=== PATIENT | male | born 1960 | race Caucasian/White ===

== ENCOUNTER 2016-10-17 07:46 | Inpatient (IN) | payer MEDICAID ==
[~2016-10-17] VITALS: Ht 162.6 cm; Wt 74.5 kg
[~2016-10-17 07:46] MED LIST: AMIO200T2 PO; APIX5TAB PO; CEPASTAT MT; D-ME473S2 PO; DILT180C75 PO; GUAI600T14 PO; LISI-313 PO; METO-429 PO; PANT40TA4 PO
[2016-10-17] MEDS ORDERED: DILTIAZEM-D5W 125MG/125ML DRIP 125 ML IV SCH (08:30)
[2016-10-17] MEDS ORDERED: DILTIAZEM 25 MG INJ IV ONE ×3 (08:30→09:00)
--- NOTE | 2016-10-17 08:41 | RADRPT ---
PROCEDURE: XR Chest. CLINICAL INDICATION: Chest pain. TECHNIQUE: Single frontal view of the chest was obtained. COMPARISON: 09/06/2016. FINDINGS: There is borderline cardiomegaly. Pulmonary vasculature appears mildly prominent. There is slight prominence of interstitial markings with a few Kellee B lines. No confluent airspace process is see n. Costophrenic angles are well defined. The visualized osseous structures appear intact. IMPRESSION: 1. Cardiomegaly with mild prominence of the upper lobe vasculature with slight interstitial prominen ce likely reflecting congestion and early edema. 2. No confluent airspace process identified. RPTAT: [facility] Physician Steff Date Time Electronically viewed and signed by Physician Steff on 10/17/2016 08:41 /
[2016-10-17 09:03] LABS: POTASSIUM 4.5 mmol/L (3.5-5.1)
[2016-10-17 09:05] LABS: CREATININE 1.33 mg/dl (0.61-1.24)
[2016-10-17 09:09] LABS: BASOPHIL # 0.1 10^3/ul (0.0-0.1); BASOPHILS % 0.4 % (0.0-2.0); EOSINOPHILS % 0.2 % (0.0-7.0); HEMATOCRIT 41.5 % (42.0-52.0); HEMOGLOBIN 13.9 g/dl (14.0-18.0); LYMPHOCYTES # 1.2 10^3/ul (0.8-2.9); LYMPHOCYTES % 10.2 % (15.0-51.0); MEAN CORPUSCULAR HEMOGLOBIN 32.2 pg (29.0-33.0); MEAN CORPUSCULAR HGB CONC 33.5 g/dl (32.0-37.0); MEAN PLATELET VOLUME 8.9 fl (7.4-10.4); MONOCYTE # 0.4 10^3/ul (0.3-0.9); MONOCYTES % 3.2 % (0.0-11.0); NEUTROPHIL # 9.9 10^3/ul (1.6-7.5); PLATELET COUNT 244 10^3/UL (140-440); RED BLOOD COUNT 4.32 10^6/ul (4.70-6.10); RED CELL DISTRIBUTION WIDTH 14.8 % (11.5-14.5); UNCORRECTED WBC 11.6 10^3/ul (4.8-10.8); WHITE BLOOD COUNT 11.6 10^3/ul (4.8-10.8)
[2016-10-17 09:10] LABS: INR 1.16; PROTIME 14.9 Sec (12.2-14.2); PT RATIO 1.2
[2016-10-17 09:11] LABS: PARTIAL THROMBOPLASTIN TIME 26.8 Sec (25.0-35.0)
[2016-10-17 09:16] LABS: CONDITION 1; LH ANALYZER COMMENTS 1
[2016-10-17 09:17] LABS: TROPONIN-I 0.016 ng/ml (0.00-0.12)
--- NOTE | 2016-10-17 09:57 | ERA ---
ER Documentation Chief Complaint Date/Time DATE: 10/17/16 TIME: 09:54 Chief Complaint SOB FOR THE PAST FEW DAYS HX OF CHF . RECENT RELEASE FROM HOSPITAL FOR SAME HPI This is a 55-year-old male who presents to the emergency room for evaluation of shortness of breath, palpitations. This patient does have a history of atrial fibrillation, he states that he recently ran out of his medications and is experiencing some mild shortness of breath. He denies any active chest pain but does state that he is feeling weak and came to the ER today for evaluation ROS All systems reviewed and are negative except as per history of present illness. Medications Home Meds Active Scripts Throat Lozenges* (Cepastat*) 9 Elmer Lozenge, 1 [place] Q1H Y for COUGH for 7 Days, LOZENGE Prov:DONG ADORNO 09/11/16 Apixaban* (Eliquis*) 5 Mg Tablet, 5 MG PO BID for 30 Days, TAB Prov:DONG ADORNO 09/11/16 Pantoprazole* (Pantoprazole*) 40 Mg Tablet.dr, 40 MG PO DAILY@06 for 30 Days Prov:DONG ADORNO 09/11/16 Metoprolol Tartrate* (Lopressor*) 50 Mg Tab, 50 MG PO BID for 30 Days, TAB Prov:DONG ADORNO 09/11/16 Lisinopril* (Lisinopril*) 5 Mg Tablet, 2.5 MG PO DAILY for 30 Days, TAB Prov:DONG ADORNO 09/11/16 Guaifenesin (Guaifenesin) 600 Mg Tablet.sa, 600 MG PO BID for 7 Days Prov:DOGN ADORNO 09/11/16 Diltiazem Hcl* (Cardizem CD*) 180 Mg Cap.sr.24h, 180 MG PO DAILY for 30 Days Prov:DONG ADORNO 09/11/16 Dextromethorphan Hb-Promethazine Hcl* (Promethazine DM* Syrup) 473 Ml Syrup, 10 ML PO Q6H Y for COUGH for 5 Days Prov:DONG ADORNO 09/11/16 Amiodarone Hcl* (Amiodarone Hcl*) 200 Mg Tablet, 200 MG PO DAILY for 30 Days, TAB Prov:DONG ADORNO 09/11/16 Allergies Allergies: Coded Allergies: No Known Allergies (Verified Allergy, Unknown, 09/02/16) PMhx/Soc History of Surgery: Yes (APPENDECTOMY) Anesthesia Reaction: No Hx Neurological Disorder: No Hx Respiratory Disorders: No Hx Cardiac Disorders: Yes (RHEUMATIC FEVER, AFIB, CHF) Hx Psychiatric Problems: No Hx Miscellaneous Medical Probl: No Hx Alcohol Use: No Hx Substance Use: No Hx Tobacco Use: No Smoking Status: Never smoker Physical Exam Vitals Vital Signs Date Time Temp Pulse Resp B/P Pulse Ox O2 Delivery O2 Flow Rate FiO2 10/17/16 08:53 105 18 118/85 99 Nasal Cannula 10/17/16 08:41 100 20 126/87 99 Nasal Cannula 10/17/16 08:05 Nasal Cannula 3 10/17/16 07:49 98.3 73 24 96 Physical Exam INITIAL VITAL SIGNS: Reviewed by me GENERAL: The patient is well developed and appropriate for usual state of health in no apparent distress HEENT: Pupils equal, round, and reactive to light. EOMI. There is no scleral icterus. NECK: C-spine is soft and supple, there is no meningismus. There is no cervical lymphadenopathy. LUNGS: Clear to auscultation bilaterally. There are no rales, wheezes or rhonchi. HEART: Irregularly irregular rhythm ABDOMEN: Soft, non-tender, non-distended. There are bowel sounds in all four quadrants. No rebound or guarding. EXTREMITIES: There is no peripheral cyanosis or edema. No focal swelling or erythema. NEUROLOGICAL: The patient moves all four extremities with 5/5 strength. Cranial nerves II - XII are intact. Normal gait. Alert and oriented SKIN: There is no apparent rash or petechiae. HEME/LYMPHATIC: There is no evidence of excessive bruising or lymphedema. PSYCHIATRIC: The patient does not appear anxious or depressed. Result Diagram: 10/17/1682310/17/16823 Results 24 hrs Laboratory Tests Test 10/17/16 08:24 Activated Partial Thromboplast Time 26.8Sec Anion Gap 20 Basophils # 0.110^3/ul Basophils % 0.4% Blood Morphology Comment Blood Urea Nitrogen 31mg/dl Calcium Level 9.0mg/dl Carbon Dioxide Level 21mmol/L Chloride Level 102mmol/L Creatinine 1.33mg/dl Eosinophils # 0.010^3/ul Eosinophils % 0.2% Glucose Level 137mg/dl Hematocrit 41.5% Hemoglobin 13.9g/dl INR International Normalized Ratio 1.16 Lymphocytes # 1.210^3/ul Lymphocytes % 10.2% Magnesium Level 2.0mg/dl Mean Corpuscular Hemoglobin 32.2pg Mean Corpuscular Hemoglobin Concent 33.5g/dl Mean Corpuscular Volume 96.0fl Mean Platelet Volume 8.9fl Monocytes # 0.410^3/ul Monocytes % 3.2% Neutrophils # 9.910^3/ul Neutrophils % 86.0% Nucleated Red Blood Cells # 0.010^3/ul Nucleated Red Blood Cells % 0.0/100WBC Platelet Count 17978^3/UL Potassium Level 4.5mmol/L Prothrombin Time 14.9Sec Prothrombin Time Ratio 1.2 Red Blood Count 4.3210^6/ul Red Cell Distribution Width 14.8% Sodium Level 138mmol/L Troponin I 0.016ng/ml White Blood Count 11.610^3/ul Current Medications Medications (Trade) Dose Ordered Sig/Rm Route PRN Reason Start Time Stop Time Status Last Admin Dose Admin Diltiazem HCl (Cardizem Iv) 10 mg ONCE ONCE IV 10/17/16 08:30 10/17/16 08:31 DC 10/17/16 08:42 Diltiazem HCl 10 mg 10 mg ONCE ONCE IV 10/17/16 08:30 10/17/16 08:31 DC 10/17/16 08:41 Diltiazem HCl (Cardizem-D5W 125 Mg/125 ml Drip) 125 ml @ 5 mls/hr TITRATE IV 10/17/16 08:30 10/17/16 08:42 Diltiazem HCl (Cardizem Iv) 15 mg ONCE ONCE IV 10/17/16 09:00 10/17/16 09:01 DC 10/17/16 08:47 Procedures/MDM EKG: Rate/Rhythm: Atrial fibrillation with rapid ventricular response QRS, ST, T-waves: [No changes consistent w/ acute ischemia] Impression: A. fib with RVR Chest X-ray 1V Interpreted by me: Soft Tissue: Cardiomegaly with mild prominence of the upper lobe vasculature with slight interstitial prominence likely reflecting congestion and early edema. Bones: No acute abnormalities Mediastinum/Cardiac Silhouette/Lungs: [No acute abnormalities] This is a 55-year-old male who presents to the ER for evaluation of shortness of breath and palpitations. When I evaluated him his heart rate was irregular in fast. EKG does confirm A. fib with RVR. The patient was given 30 mg total of Cardizem with only minor improvement in his heart rate. He was then placed on a Cardizem drip and his heart rate is now 120 bpm, his blood pressure is 129/ 67. He states he is feeling better at this time. Chest x-ray does show mild pulmonary edema. He has ran out of his medications. I have contacted his previous admitting physician, Dr. Noel who agrees this patient can be admitted to the hospital and placed in ICU at this time. Cardiac Critical Care: Excluding all billable procedures Time: 38 minutes Treatments/Evaluations: Close monitoring for dangerous arrhythmia and cardiovascular collapse, while treating with advance cardiac medications and techniques. Departure Diagnosis: Primary Impression: Atrial fibrillation with RVR Additional Impressions: Normocytic anemia Renal insufficiency Pulmonary vascular congestion Condition: Serious JAVID HEARN DO Oct 17, 2016 09:57
--- NOTE | 2016-10-17 14:20 | HP ---
DATE OF ADMISSION: 10/17/2016 CHIEF COMPLAINT: Shortness of breath for the past few days. HISTORY OF PRESENT ILLNESS: The patient is a 55-year-old gentleman known to me from previous admiss ion. The patient with a history of cardiomyopathy, mitral valve regurgitation, atrial fibrillation and tricuspid regurgitation. The patient has a history of admission for atrial fibrillation with ra pid ventricular response and refused cardioversion per last admission and was discharged home on dc dical management for atrial fibrillation. The patient told me that he ran out of his medication 5 d ays ago and was supposed to see his primary care physician in the office tomorrow. However, the pat ient developed shortness of breath and palpitations and presented to the emergency room[facility] was found to have atrial fibrillation with rapid ventricular response. The pat ient was started on Cardizem drip and will be admitted for further evaluation and management to the intensive care unit. The patient denied any fever or chills. Denied nausea, vomiting. PAST MEDICAL HISTORY: Per HPI, positive for atrial fibrillation and congestive heart failure. PAST SURGICAL HISTORY: The patient is status post cardioversion 4 years ago. Status post appendect marquis many years ago. FAMILY HISTORY: Noncontributory. SOCIAL HISTORY: The patient is employed as a painter hand. The patient is a smoker for many years. The patient denied any alcohol use, denies any illicit drug use. ALLERGIES: NO KNOWN ALLERGIES. MEDICATIONS ON ADMISSION: 1. Cepastat lozenges. 2. Eliquis 5 mg p.o. b.i.d. 3. Protonix. 4. Metoprolol 50 mg p.o. b.i.d. 5. Lisinopril 2.5 mg p.o. daily. 6. Cardizem CD 180 mg p.o. daily. 7. Promethazine. 8. Amiodarone 200 mg p.o. daily. REVIEW OF SYSTEMS: A 12-point review of systems is negative unless what mentioned in the HPI. PHYSICAL EXAMINATION: GENERAL: Well-developed, well-nourished male, currently is awake, alert. VITAL SIGNS: Temperature is 98.3, pulse is 98, blood pressure is 119/85, respiratory rate 18, oxyge n saturation is 99% on 3 liters nasal cannula. HEENT: Head is atraumatic, normocephalic. PERRLA. NECK: Supple, no mass, no thyromegaly. JVD is present. LUNGS: Clear bilaterally. CARDIOVASCULAR: Irregularly irregular rhythm. S2, variable S1, systolic murmur. ABDOMEN: Round, soft, nondistended, nontender. Bowel sounds present. There is no guarding, no ten derness. EXTREMITIES: No edema, clubbing, cyanosis. Pulses equal bilaterally 2+. SKIN: No rash, petechiae noted. NEUROLOGIC: The patient is awake, alert and oriented x4. No focal deficits noted. Motor strength is 5/5 in all extremities. LABORATORY DATA: On admission, CBC: White blood cells 11.6, hemoglobin 13.9, hematocrit 41.5, plat elets 244. Chemistry: Sodium 138, potassium 4.5, chloride 102, carbon dioxide 21, anion gap 20, BU N is 31, creatinine 1.33, glucose 137, calcium 9.2. Magnesium 2.1. Troponin is 0.016. INR is 1.16 , APTT is 26.8. IMAGING: Chest x-ray impression: 1. Cardiomegaly with mild prominence of upper lobe vasculature with slight interstitial prominence, likely reflection congestion and early edema. 2. No airspace process identified. ASSESSMENT: 1. Atrial fibrillation with rapid ventricular response. 2. Cardiomyopathy. 3. Mitral valve regurgitation. 4. History of rheumatic heart disease. 5. Poor medical compliance. PLAN: Admit patient to intensive care unit. Continue Cardizem drip. We will ask Dr. Hoyt to see patient in cardiology consultation. Resume patient's home medications. The patient is currently w ith acute kidney injury with elevated creatinine of 1.33 and BUN is 31. Continue to monitor renal f unction. We will restart Eliquis and bridge Lovenox for atrial fibrillation. Further recommendatio ns based on clinical course. Plan of care discussed with Dr. Noel. Dictated By: BJORN GOYAL [employer] TRIMMER for NADER NOEL MD SR/NTS Conf#: [id number] DID#: [id number]
[2016-10-17] MEDS: AMIODARONE 200 MG TAB PO SCH (17:44)
[2016-10-17] MEDS: DILTIAZEM (CD) 180 MG CAP PO SCH (17:45)
[2016-10-17 18:26] VITALS: BP 124/75; PULSE 115; RESP 18
[2016-10-17 18:27] VITALS: PULSE 127
[2016-10-17 18:28] VITALS: Ht 162.6 cm; Wt 74.5 kg
[2016-10-17 18:48] VITALS: BP 122/85; RESP 18
[2016-10-17 19:47] LABS: CREATINE KINASE 58 IU/L (23-200)
[2016-10-17 19:57] LABS: CK-MB 1.12 ng/ml (0.0-2.4)
[2016-10-17 20:00] LABS: TROPONIN-I < 0.012 ng/ml (0.00-0.12)
[2016-10-17] MEDS: METOPROLOL 50 MG TAB PO SCH (20:09)
[2016-10-17] MEDS: APIXABAN 5 MG TABLET PO SCH (20:09)
[2016-10-17 20:14] VITALS: PULSE 110
[2016-10-17 23:29] LABS: CREATINE KINASE 63 IU/L (23-200)
[2016-10-17 23:37] VITALS: BP 99/77; RESP 18
[2016-10-17 23:40] LABS: CK-MB 1.11 ng/ml (0.0-2.4)
[2016-10-17 23:44] LABS: TROPONIN-I < 0.012 ng/ml (0.00-0.12)
[2016-10-18] VITALS (12 sets, daily range): BP systolic 94–116; BP diastolic 69–86; PULSE 78–101; RESP 16–18
[2016-10-18] MEDS: PANTOPRAZOLE (EC) 40 MG TAB PO SCH (06:02)
[2016-10-18] MEDS: ONDANSETRON 4 MG INJ IV PRN (06:02)
--- NOTE | 2016-10-18 08:33 | CONS ---
Date/Time of Note Date/Time of Note DATE: 10/18/16 TIME: 08:30 Assessment/Plan Assessment/Plan Additional Assessment/Plan 1. Atrial fibrillation with rapid ventricular response. 2. Cardiomyopathy with an EF 50% 3. Mitral valve regurgitation - mod-severe 4. History of rheumatic heart disease. -eliquis resumed -rate much better xcontrolled and nnow in the 90s -continue metoprolol/dig/cardizem Consultation Date/Type/Reason Admit Date/Time Oct 17, 2016 at 18:15 Hx of Present Illness The patient is a 55-year-old gentleman known to me from previous admission. The patient with a history of cardiomyopathy, mitral valve regurgitation, atrial fibrillation and tricuspid regurgitation. The patient has a history of admission for atrial fibrillation with rapid ventricular response and refused cardioversion per last admission and was discharged home on medical management for atrial fibrillation. The patient told me that he ran out of his medication 5 days ago and was supposed to see his primary care physician in the office tomorrow. However, the patient developed shortness of breath and palpitations and presented to the emergency room. In the emergency room, patient was found to have atrial fibrillation with rapid ventricular response. The patient was started on Cardizem drip and will be admitted for further evaluation and management to the intensive care unit. The patient denied any fever or chills. He does have nausea Past Surgical History Past Surgical Hx: no surgical history Social History Smoking Status: Former smoker Exam/Review of Systems Vital Signs Vitals Vital Signs Date Time Temp Pulse Resp B/P Pulse Ox O2 Delivery O2 Flow Rate FiO2 10/18/16 08:09 98.4 82 17 105/70 95 10/17/16 22:15 Nasal Cannula 2.0 Results Result Diagram: 10/17/1682310/17/16823 Results 24 hrs Laboratory Tests Test 10/17/16 19:10 10/17/16 23:00 Creatine Kinase 58 63 Creatine Kinase Index 1.9 1.8 Creatinine Kinase MB (Mass) 1.12 1.11 Troponin I < 0.012 < 0.012 Medications Medications Current Medications Amiodarone HCl (Cordarone) 200 mg DAILY PO Last administered on 10/17/16 17:44 ; Admin Dose 200 MG; Start 10/18/16 at 09:00 Apixaban (Eliquis) 5 mg BID PO Last administered on 10/17/16 20:09; Admin Dose 5 MG; Start 10/17/16 at 21:00 Diltiazem HCl (Cardizem Cd) 180 mg DAILY PO Last administered on 10/17/16 17: 45; Admin Dose 180 MG; Start 10/18/16 at 09:00 Lisinopril (Zestril) 2.5 mg DAILY PO ; Start 10/18/16 at 09:00 Metoprolol Tartrate (Lopressor) 50 mg BID PO Last administered on 10/17/16 20: 09; Admin Dose 50 MG; Start 10/17/16 at 21:00 Pantoprazole (Protonix Tab) 40 mg DAILY@06 PO Last administered on 10/18/16 06 :02; Admin Dose 40 MG; Start 10/18/16 at 06:00 Influenza Virus Vaccine (Fluzone) 0.5 ml ONCE ONCE IM* ; Start 10/20/16 at 09:00 ; Stop 10/20/16 at 09:01 Ondansetron HCl (Zofran Inj) 4 mg Q6H PRN IV NAUSEA AND/OR VOMITING Last administered on 10/18/16 06:02; Admin Dose 4 MG; Start 10/18/16 at 06:00 EDVIN PIERSON MD Oct 18, 2016 08:33
[2016-10-18] MEDS: AMIODARONE 200 MG TAB PO SCH (08:35)
[2016-10-18] MEDS: APIXABAN 5 MG TABLET PO SCH ×2 (08:35→20:41)
[2016-10-18] MEDS: METOPROLOL 50 MG TAB PO SCH ×2 (08:36→20:42)
[2016-10-18] MEDS: LISINOPRIL 5 MG TAB PO SCH (08:36)
[2016-10-18] MEDS: DILTIAZEM (CD) 180 MG CAP PO SCH (08:36)
[2016-10-18 10:32] LABS: CREATININE 1.4 mg/dl (0.61-1.24)
[2016-10-18 10:33] LABS: CALCIUM 8.8 mg/dl (8.4-10.2)
[2016-10-18 10:37] LABS: BASOPHILS % 0.2 % (0.0-2.0); EOSINOPHILS % 0.3 % (0.0-7.0); HEMATOCRIT 39.5 % (42.0-52.0); HEMOGLOBIN 13.3 g/dl (14.0-18.0); LYMPHOCYTES # 1.2 10^3/ul (0.8-2.9); LYMPHOCYTES % 9.4 % (15.0-51.0); MEAN CORPUSCULAR HEMOGLOBIN 32.6 pg (29.0-33.0); MEAN CORPUSCULAR HGB CONC 33.6 g/dl (32.0-37.0); MEAN CORPUSCULAR VOLUME 97.1 fl (82.0-101.0); MEAN PLATELET VOLUME 9.1 fl (7.4-10.4); MONOCYTE # 0.5 10^3/ul (0.3-0.9); MONOCYTES % 4.2 % (0.0-11.0); NEUTROPHIL # 10.6 10^3/ul (1.6-7.5); NEUTROPHILS % 85.9 % (39.0-77.0); PLATELET COUNT 247 10^3/UL (140-440); RED BLOOD COUNT 4.07 10^6/ul (4.70-6.10); RED CELL DISTRIBUTION WIDTH 14.6 % (11.5-14.5); UNCORRECTED WBC 12.3 10^3/ul (4.8-10.8); WHITE BLOOD COUNT 12.3 10^3/ul (4.8-10.8)
[2016-10-18 10:41] LABS: CONDITION 1; LH ANALYZER COMMENTS 1
--- NOTE | 2016-10-18 17:00 | PN ---
Date/Time of Note Date/Time of Note DATE: 10/18/16 TIME: 16:59 Assessment/Plan Lines/Catheters IV [facility] Type [facility]from [facility] Saline Lock Assessment/Plan Assessment/Plan 1. Atrial fibrillation with rapid ventricular response. - PER CARDIOLOGY 2. Cardiomyopathy. 3. Mitral valve regurgitation. 4. History of rheumatic heart disease. 5. Poor medical compliance. 6. Acute kidney injury -with elevated BUN/ cREATININE 36/ 1.40 - Will do D5 1/2 NS at 40 cc x500 cc. - BMP AM - Continue to monitor renal function. Continue to monitor renal function. We will restart Eliquis and bridge Lovenox for atrial fibrillation. Further recommendations based on clinical course. Subjective 24 Hr Interval Summary Constitutional: no complaints Eyes: no complaints ENT: no complaints Respiratory: no complaints Gastrointestinal: nausea Genitourinary: no complaints Musculoskeletal: no complaints Skin: no complaints Neurologic: no complaints Endocrine: no complaints Lymphatic: no complaints Psychological: no complaints Immunologic: no complaints Exam/Review of Systems Vital Signs Vitals Vital Signs Date Time Temp Pulse Resp B/P Pulse Ox O2 Delivery O2 Flow Rate FiO2 10/18/16 16:38 94 10/18/16 15:56 98.0 17 115/70 95 10/17/16 22:15 Nasal Cannula 2.0 Exam Constitutional: alert, oriented, well developed Psych: nl mood/affect Head: atraumatic Eyes: EOMI, PERRL, nl sclera ENMT: nl external ears & nose Neck: non-tender Respiratory: clear to auscultation Cardiovascular: nl pulses Gastrointestinal: non-tender, soft Musculoskeletal: nl extremities to inspection Extremities: normal pulses Neurological: nl mental status, nl speech Skin: nl turgor Results Result Diagram: 10/18/1620 10/18/16 0920 Results 24 hrs Laboratory Tests Test 10/17/16 19:10 10/17/16 23:00 10/18/16 09:20 Creatine Kinase 58 63 Creatine Kinase Index 1.9 1.8 Creatinine Kinase MB (Mass) 1.12 1.11 Troponin I < 0.012 < 0.012 Anion Gap 18 H Basophils # 0.0 Basophils % 0.2 Blood Morphology Comment Blood Urea Nitrogen 36 H Calcium Level 8.8 Carbon Dioxide Level 22 Chloride Level 102 Creatinine 1.40 H Eosinophils # 0.0 Eosinophils % 0.3 Glucose Level 144 Hematocrit 39.5 L Hemoglobin 13.3 L Lymphocytes # 1.2 Lymphocytes % 9.4 L Mean Corpuscular Hemoglobin 32.6 Mean Corpuscular Hemoglobin Concent 33.6 Mean Corpuscular Volume 97.1 Mean Platelet Volume 9.1 Monocytes # 0.5 Monocytes % 4.2 Neutrophils # 10.6 H Neutrophils % 85.9 H Nucleated Red Blood Cells # 0.0 Nucleated Red Blood Cells % 0.0 Platelet Count 247 Potassium Level 5.0 Red Blood Count 4.07 L Red Cell Distribution Width 14.6 H Sodium Level 137 White Blood Count 12.3 H Medications Medications Current Medications Amiodarone HCl (Cordarone) 200 mg DAILY PO Last administered on 10/18/16 08:35 ; Admin Dose 200 MG; Start 10/18/16 at 09:00 Apixaban (Eliquis) 5 mg BID PO Last administered on 10/18/16 08:35; Admin Dose 5 MG; Start 10/17/16 at 21:00 Diltiazem HCl (Cardizem Cd) 180 mg DAILY PO Last administered on 10/17/16 17: 45; Admin Dose 180 MG; Start 10/18/16 at 09:00 Lisinopril (Zestril) 2.5 mg DAILY PO Last administered on 10/18/16 08:36; Admin Dose 2.5 MG; Start 10/18/16 at 09:00 Metoprolol Tartrate (Lopressor) 50 mg BID PO Last administered on 10/17/16 20: 09; Admin Dose 50 MG; Start 10/17/16 at 21:00 Pantoprazole (Protonix Tab) 40 mg DAILY@06 PO Last administered on 10/18/16 06 :02; Admin Dose 40 MG; Start 10/18/16 at 06:00 Influenza Virus Vaccine (Fluzone) 0.5 ml ONCE ONCE IM* ; Start 10/20/16 at 09:00 ; Stop 10/20/16 at 09:01 Ondansetron HCl (Zofran Inj) 4 mg Q6H PRN IV NAUSEA AND/OR VOMITING Last administered on 10/18/16 06:02; Admin Dose 4 MG; Start 10/18/16 at 06:00 DONG ADORNO Oct 18, 2016 17:00
[2016-10-18] MEDS ORDERED: DEXTROSE 5%-0.45% NACL 1,000 ML IV SCH (17:30)
[2016-10-19] VITALS (12 sets, daily range): BP systolic 97–129; BP diastolic 65–73; PULSE 90–170; RESP 16–18
[2016-10-19] MEDS: PANTOPRAZOLE (EC) 40 MG TAB PO SCH (05:45)
[2016-10-19 07:03] LABS: BASOPHILS % 0.1 % (0.0-2.0); EOSINOPHILS # 0.2 10^3/ul (0.0-0.5); EOSINOPHILS % 2.2 % (0.0-7.0); HEMATOCRIT 37.2 % (42.0-52.0); HEMOGLOBIN 12.8 g/dl (14.0-18.0); LYMPHOCYTES # 1.9 10^3/ul (0.8-2.9); LYMPHOCYTES % 18.5 % (15.0-51.0); MEAN CORPUSCULAR HEMOGLOBIN 33.1 pg (29.0-33.0); MEAN CORPUSCULAR HGB CONC 34.3 g/dl (32.0-37.0); MEAN CORPUSCULAR VOLUME 96.5 fl (82.0-101.0); MONOCYTE # 0.6 10^3/ul (0.3-0.9); MONOCYTES % 6.2 % (0.0-11.0); NEUTROPHIL # 7.6 10^3/ul (1.6-7.5); PLATELET COUNT 208 10^3/UL (140-440); POTASSIUM 4.4 mmol/L (3.5-5.1); RED BLOOD COUNT 3.86 10^6/ul (4.70-6.10); RED CELL DISTRIBUTION WIDTH 14.6 % (11.5-14.5); UNCORRECTED WBC 10.4 10^3/ul (4.8-10.8); WHITE BLOOD COUNT 10.4 10^3/ul (4.8-10.8)
[2016-10-19 07:05] LABS: CREATININE 1.3 mg/dl (0.61-1.24)
[2016-10-19 07:06] LABS: CALCIUM 8.4 mg/dl (8.4-10.2)
[2016-10-19 07:22] LABS: CONDITION 1; LH ANALYZER COMMENTS 1
[2016-10-19] MEDS: METOPROLOL 50 MG TAB PO SCH (07:23)
[2016-10-19] MEDS: DILTIAZEM (CD) 180 MG CAP PO SCH (08:08)
[2016-10-19] MEDS: LISINOPRIL 5 MG TAB PO SCH (08:08)
[2016-10-19] MEDS: APIXABAN 5 MG TABLET PO SCH ×2 (08:09→21:54)
[2016-10-19] MEDS: AMIODARONE 200 MG TAB PO SCH (08:09)
--- NOTE | 2016-10-19 13:33 | PN ---
Date/Time of Note Date/Time of Note DATE: 10/19/16 TIME: 13:29 Assessment/Plan VTE Prophylaxis VTE Prophylaxis Intervention: SCD's Lines/Catheters [facility] Saline Lock Urinary Cath still in place: No Assessment/Plan Chief Complaint/Hosp Course ASSESSMENT: 1. Atrial fibrillation with rapid ventricular response. is following in cardiology consultation. Continue Eliquis. 2. Cardiomyopathy. 3. Mitral valve regurgitation. 4. History of rheumatic heart disease. 5. Poor medical compliance. Further recommendations based on clinical course. Plan of care discussed with Dr. Noel. Problems: Subjective 24 Hr Interval Summary Free Text/Dictation Patient is awake, alert, denies pain. A-fib with elevated HR 120 on tele. Exam/Review of Systems Vital Signs Vitals Vital Signs Date Time Temp Pulse Resp B/P Pulse Ox O2 Delivery O2 Flow Rate FiO2 10/19/16 12:45 98.0 87 18 113/65 99 10/17/16 22:15 Nasal Cannula 2.0 Intake and Output 10/18/16 10/18/16 10/19/16 15:00 23:00 07:00 Intake Total 840 ml 450 ml Balance 840 ml 450 ml Exam GENERAL: Well-developed, well-nourished male, currently is awake, alert. HEENT: Head is atraumatic, normocephalic. PERRLA. NECK: Supple, no mass, no thyromegaly. JVD is present. LUNGS: Clear bilaterally. CARDIOVASCULAR: Irregularly irregular rhythm. S2, variable S1, systolic murmur. ABDOMEN: Round, soft, nondistended, nontender. Bowel sounds present. There is no guarding, no tenderness. EXTREMITIES: No edema, clubbing, cyanosis. Pulses equal bilaterally 2+. SKIN: No rash, petechiae noted. NEUROLOGIC: The patient is awake, alert and oriented x4. Results Result Diagram: 10/19/16 0545 10/19/16 0545 Results 24 hrs Laboratory Tests Test 10/19/16 05:45 Anion Gap 13 Basophils # 0.0 Basophils % 0.1 Blood Morphology Comment Blood Urea Nitrogen 29 H Calcium Level 8.4 Carbon Dioxide Level 24 Chloride Level 104 Creatinine 1.30 H Eosinophils # 0.2 Eosinophils % 2.2 Glucose Level 86 # Hematocrit 37.2 L Hemoglobin 12.8 L Lymphocytes # 1.9 Lymphocytes % 18.5 Mean Corpuscular Hemoglobin 33.1 H Mean Corpuscular Hemoglobin Concent 34.3 Mean Corpuscular Volume 96.5 Mean Platelet Volume 9.0 Monocytes # 0.6 Monocytes % 6.2 Neutrophils # 7.6 H Neutrophils % 73.0 Nucleated Red Blood Cells # 0.0 Nucleated Red Blood Cells % 0.0 Platelet Count 208 Potassium Level 4.4 Red Blood Count 3.86 L Red Cell Distribution Width 14.6 H Sodium Level 137 White Blood Count 10.4 Medications Medications Current Medications Amiodarone HCl (Cordarone) 200 mg DAILY PO Last administered on 10/19/16 08:09 ; Admin Dose 200 MG; Start 10/18/16 at 09:00 Apixaban (Eliquis) 5 mg BID PO Last administered on 10/19/16 08:09; Admin Dose 5 MG; Start 10/17/16 at 21:00 Diltiazem HCl (Cardizem Cd) 180 mg DAILY PO Last administered on 10/19/16 08: 08; Admin Dose 180 MG; Start 10/18/16 at 09:00 Lisinopril (Zestril) 2.5 mg DAILY PO Last administered on 10/19/16 08:08; Admin Dose 2.5 MG; Start 10/18/16 at 09:00 Metoprolol Tartrate (Lopressor) 50 mg BID PO Last administered on 10/17/16 20: 09; Admin Dose 50 MG; Start 10/17/16 at 21:00 Pantoprazole (Protonix Tab) 40 mg DAILY@06 PO Last administered on 10/19/16 05 :45; Admin Dose 40 MG; Start 10/18/16 at 06:00 Influenza Virus Vaccine (Fluzone) 0.5 ml ONCE ONCE IM* ; Start 10/20/16 at 09:00 ; Stop 10/20/16 at 09:01 Ondansetron HCl (Zofran Inj) 4 mg Q6H PRN IV NAUSEA AND/OR VOMITING Last administered on 10/18/16 06:02; Admin Dose 4 MG; Start 10/18/16 at 06:00 BJORN GOYAL Oct 19, 2016 13:33
--- NOTE | 2016-10-19 16:14 | PN ---
Date/Time of Note Date/Time of Note DATE: 10/19/16 TIME: 16:13 Assessment/Plan VTE Prophylaxis VTE Prophylaxis Intervention: SCD's Lines/Catheters IV Catheter Type (from [facility]): Saline Lock Urinary Cath still in place: No Assessment/Plan Chief Complaint/Hosp Course The patient is a 55-year-old gentleman known to me from previous admission. The patient with a history of cardiomyopathy, mitral valve regurgitation, atrial fibrillation and tricuspid regurgitation. The patient has a history of admission for atrial fibrillation with rapid ventricular response and refused cardioversion per last admission and was discharged home on medical management for atrial fibrillation. The patient told me that he ran out of his medication 5 days ago and was supposed to see his primary care physician in the office tomorrow. However, the patient developed shortness of breath and palpitations and presented to the emergency room. In the emergency room, patient was found to have atrial fibrillation with rapid ventricular response. The patient was started on Cardizem drip and will be admitted for further evaluation and management to the intensive care unit. The patient denied any fever or chills. He does have nausea Problems: Assessment/Plan 1. Atrial fibrillation with rapid ventricular response. 2. Cardiomyopathy with an EF 50% 3. Mitral valve regurgitation - mod-severe 4. History of rheumatic heart disease. -eliquis resumed -rate much better xcontrolled and change metoporlol to atenolol due to side effects and will increse dose -continue dig/cardizem -d/c planning ok Subjective 24 Hr Interval Summary Free Text/Dictation The patient doing well Exam/Review of Systems Vital Signs Vitals Vital Signs Date Time Temp Pulse Resp B/P Pulse Ox O2 Delivery O2 Flow Rate FiO2 10/19/16 16:08 110 10/19/16 12:45 98.0 18 113/65 99 10/17/16 22:15 Nasal Cannula 2.0 Intake and Output 10/18/16 10/18/16 10/19/16 15:00 23:00 07:00 Intake Total 840 ml 450 ml Balance 840 ml 450 ml Results Result Diagram: 10/19/16 0545 10/19/16 0545 Results 24 hrs Laboratory Tests Test 10/19/16 05:45 Anion Gap 13 Basophils # 0.0 Basophils % 0.1 Blood Morphology Comment Blood Urea Nitrogen 29 H Calcium Level 8.4 Carbon Dioxide Level 24 Chloride Level 104 Creatinine 1.30 H Eosinophils # 0.2 Eosinophils % 2.2 Glucose Level 86 # Hematocrit 37.2 L Hemoglobin 12.8 L Lymphocytes # 1.9 Lymphocytes % 18.5 Mean Corpuscular Hemoglobin 33.1 H Mean Corpuscular Hemoglobin Concent 34.3 Mean Corpuscular Volume 96.5 Mean Platelet Volume 9.0 Monocytes # 0.6 Monocytes % 6.2 Neutrophils # 7.6 H Neutrophils % 73.0 Nucleated Red Blood Cells # 0.0 Nucleated Red Blood Cells % 0.0 Platelet Count 208 Potassium Level 4.4 Red Blood Count 3.86 L Red Cell Distribution Width 14.6 H Sodium Level 137 White Blood Count 10.4 Medications Medications Current Medications Amiodarone HCl (Cordarone) 200 mg DAILY PO Last administered on 10/19/16 08:09 ; Admin Dose 200 MG; Start 10/18/16 at 09:00 Apixaban (Eliquis) 5 mg BID PO Last administered on 10/19/16 08:09; Admin Dose 5 MG; Start 10/17/16 at 21:00 Diltiazem HCl (Cardizem Cd) 180 mg DAILY PO Last administered on 10/19/16 08: 08; Admin Dose 180 MG; Start 10/18/16 at 09:00 Lisinopril (Zestril) 2.5 mg DAILY PO Last administered on 10/19/16 08:08; Admin Dose 2.5 MG; Start 10/18/16 at 09:00 Metoprolol Tartrate (Lopressor) 50 mg BID PO Last administered on 10/17/16 20: 09; Admin Dose 50 MG; Start 10/17/16 at 21:00 Pantoprazole (Protonix Tab) 40 mg DAILY@06 PO Last administered on 10/19/16 05 :45; Admin Dose 40 MG; Start 10/18/16 at 06:00 Influenza Virus Vaccine (Fluzone) 0.5 ml ONCE ONCE IM* ; Start 10/20/16 at 09:00 ; Stop 10/20/16 at 09:01 Ondansetron HCl (Zofran Inj) 4 mg Q6H PRN IV NAUSEA AND/OR VOMITING Last administered on 10/18/16 06:02; Admin Dose 4 MG; Start 10/18/16 at 06:00 EDVIN PIERSON MD Oct 19, 2016 16:14
--- NOTE | 2016-10-19 16:41 | RADRPT ---
PROCEDURE: Retroperitoneal US. CLINICAL INDICATION: Renal insufficiency TECHNIQUE: Multiple sonographic images of the kidneys and retroperitoneum were obtained. The imag es were reviewed on a PACS workstation. COMPARISON: No prior studies are available for comparison. FINDINGS: The kidneys are normal in size, contour, cortical thickness and echogenicity. The right kidney measures 10.3 cm. The left kidney measures 10.0 cm. No kidney stones are visualized. There is no evidence for hydronephrosis. The urinary bladder is not visualized. RPTAT: AA IMPRESSION: Unremarkable retroperitoneal ultrasound. .Torsten Clarke MD, MD Date Time Electronically viewed and signed by .Torsten Clarke MD, on 10/19/2016 16:40 .S/
[2016-10-20] VITALS (12 sets, daily range): BP systolic 105–132; BP diastolic 57–78; PULSE 85–130; RESP 16–18
[2016-10-20] MEDS: PANTOPRAZOLE (EC) 40 MG TAB PO SCH (06:43)
[2016-10-20 07:09] LABS: BASOPHIL # 0.1 10^3/ul (0.0-0.1); BASOPHILS % 0.6 % (0.0-2.0); EOSINOPHILS # 0.3 10^3/ul (0.0-0.5); EOSINOPHILS % 2.9 % (0.0-7.0); HEMATOCRIT 35.5 % (42.0-52.0); HEMOGLOBIN 12.3 g/dl (14.0-18.0); LYMPHOCYTES # 1.6 10^3/ul (0.8-2.9); LYMPHOCYTES % 15.4 % (15.0-51.0); MEAN CORPUSCULAR HEMOGLOBIN 33.1 pg (29.0-33.0); MEAN CORPUSCULAR HGB CONC 34.8 g/dl (32.0-37.0); MEAN CORPUSCULAR VOLUME 95.4 fl (82.0-101.0); MONOCYTE # 0.7 10^3/ul (0.3-0.9); MONOCYTES % 6.6 % (0.0-11.0); NEUTROPHIL # 7.6 10^3/ul (1.6-7.5); NEUTROPHILS % 74.5 % (39.0-77.0); PLATELET COUNT 230 10^3/UL (140-440); RED BLOOD COUNT 3.72 10^6/ul (4.70-6.10); RED CELL DISTRIBUTION WIDTH 14.7 % (11.5-14.5); UNCORRECTED WBC 10.1 10^3/ul (4.8-10.8); WHITE BLOOD COUNT 10.1 10^3/ul (4.8-10.8)
[2016-10-20 07:14] LABS: POTASSIUM 4.3 mmol/L (3.5-5.1)
[2016-10-20 07:16] LABS: CREATININE 1.19 mg/dl (0.61-1.24)
[2016-10-20 07:17] LABS: CALCIUM 8.5 mg/dl (8.4-10.2)
[2016-10-20 07:21] LABS: CONDITION 1; LH ANALYZER COMMENTS 1
--- NOTE | 2016-10-20 08:28 | PN ---
Date/Time of Note Date/Time of Note DATE: 10/20/16 TIME: 08:27 Assessment/Plan VTE Prophylaxis VTE Prophylaxis Intervention: SCD's Lines/Catheters IV [facility] Type (from [facility]): Saline Lock Urinary Cath still in place: No Assessment/Plan Chief Complaint/Hosp Course The patient is a 55-year-old gentleman known to me from previous admission. The patient with a history of cardiomyopathy, mitral valve regurgitation, atrial fibrillation and tricuspid regurgitation. The patient has a history of admission for atrial fibrillation with rapid ventricular response and refused cardioversion per last admission and was discharged home on medical management for atrial fibrillation. The patient told me that he ran out of his medication 5 days ago and was supposed to see his primary care physician in the office tomorrow. However, the patient developed shortness of breath and palpitations and presented to the emergency room. In the emergency room, patient was found to have atrial fibrillation with rapid ventricular response. The patient was started on Cardizem drip and will be admitted for further evaluation and management to the intensive care unit. The patient denied any fever or chills. He does have nausea Problems: Assessment/Plan Assessment/Plan 1. Atrial fibrillation with rapid ventricular response. 2. Cardiomyopathy with an EF 50% 3. Mitral valve regurgitation - mod-severe 4. History of rheumatic heart disease. -increase av blockers -on eliquis -will continue amiodarone as may cardiovert in the future -possible cardiovversion in 8 weeks if still afib d/c planning ok Subjective 24 Hr Interval Summary Free Text/Dictation The patient stable with occaisonal elevated HR Exam/Review of Systems Vital Signs Vitals Vital Signs Date Time Temp Pulse Resp B/P Pulse Ox O2 Delivery O2 Flow Rate FiO2 10/20/16 07:41 98.3 71 18 108/57 98 10/17/16 22:15 Nasal Cannula 2.0 Intake and Output 10/19/16 10/19/16 10/20/16 15:00 23:00 07:00 Intake Total 800 ml 700 ml Balance 800 ml 700 ml Results Result Diagram: 10/20/16 0620 10/20/16 0620 Results 24 hrs Laboratory Tests Test 10/20/16 06:20 Anion Gap 15 Basophils # 0.1 Basophils % 0.6 Blood Morphology Comment Blood Urea Nitrogen 25 H Calcium Level 8.5 Carbon Dioxide Level 24 Chloride Level 102 Creatinine 1.19 Eosinophils # 0.3 Eosinophils % 2.9 Glucose Level 91 Hematocrit 35.5 L Hemoglobin 12.3 L Lymphocytes # 1.6 Lymphocytes % 15.4 Mean Corpuscular Hemoglobin 33.1 H Mean Corpuscular Hemoglobin Concent 34.8 Mean Corpuscular Volume 95.4 Mean Platelet Volume 9.0 Monocytes # 0.7 Monocytes % 6.6 Neutrophils # 7.6 H Neutrophils % 74.5 Nucleated Red Blood Cells # 0.0 Nucleated Red Blood Cells % 0.0 Platelet Count 230 Potassium Level 4.3 Red Blood Count 3.72 L Red Cell Distribution Width 14.7 H Sodium Level 137 White Blood Count 10.1 Medications Medications Current Medications Amiodarone HCl (Cordarone) 200 mg DAILY PO Last administered on 10/19/16 08:09 ; Admin Dose 200 MG; Start 10/18/16 at 09:00 Apixaban (Eliquis) 5 mg BID PO Last administered on 10/19/16 21:54; Admin Dose 5 MG; Start 10/17/16 at 21:00 Diltiazem HCl (Cardizem Cd) 180 mg DAILY PO Last administered on 10/19/16 08: 08; Admin Dose 180 MG; Start 10/18/16 at 09:00 Lisinopril (Zestril) 2.5 mg DAILY PO Last administered on 10/19/16 08:08; Admin Dose 2.5 MG; Start 10/18/16 at 09:00 Pantoprazole (Protonix Tab) 40 mg DAILY@06 PO Last administered on 10/20/16 06 :43; Admin Dose 40 MG; Start 10/18/16 at 06:00 Influenza Virus Vaccine (Fluzone) 0.5 ml ONCE ONCE IM* ; Start 10/20/16 at 09:00 ; Stop 10/20/16 at 09:01 Ondansetron HCl (Zofran Inj) 4 mg Q6H PRN IV NAUSEA AND/OR VOMITING Last administered on 10/18/16 06:02; Admin Dose 4 MG; Start 10/18/16 at 06:00 Atenolol (Tenormin) 100 mg DAILY PO ; Start 10/20/16 at 09:00 EDVIN PIERSON MD Oct 20, 2016 08:28
[2016-10-20] MEDS: LISINOPRIL 5 MG TAB PO SCH (08:46)
[2016-10-20] MEDS: ATENOLOL 100 MG TAB PO SCH (08:47)
[2016-10-20] MEDS: APIXABAN 5 MG TABLET PO SCH ×2 (08:47→20:51)
[2016-10-20] MEDS ORDERED: INFLUENZA VIRUS VACCINE 0.5 ML (DISPENSING) IM* ONE (09:00)
[2016-10-20] MEDS: DILTIAZEM (CD) 240 MG CAP PO SCH (10:06)
--- NOTE | 2016-10-20 13:29 | PN ---
Date/Time of Note Date/Time of Note DATE: 10/20/16 TIME: 13:27 Assessment/Plan VTE Prophylaxis VTE Prophylaxis Intervention: LMWH Lines/Catheters IV C[facility] Saline Lock Urinary Cath still in place: No Assessment/Plan Assessment/Plan 1. Atrial fibrillation with rapid ventricular response. - PER CARDIOLOGY 2. Cardiomyopathy. 3. Mitral valve regurgitation. 4. History of rheumatic heart disease. 5. Poor medical compliance. 6. Acute kidney injury resolving - BMP AM - Continue to monitor renal function. Continue to monitor renal function. We will restart Eliquis and bridge Lovenox for atrial fibrillation. Further recommendations based on clinical course. Exam/Review of Systems Vital Signs Vitals Vital Signs Date Time Temp Pulse Resp B/P Pulse Ox O2 Delivery O2 Flow Rate FiO2 10/20/16 12:00 97.7 51 18 105/78 98 10/17/16 22:15 Nasal Cannula 2.0 Intake and Output 10/19/16 10/19/16 10/20/16 15:00 23:00 07:00 Intake Total 800 ml 700 ml Balance 800 ml 700 ml Exam Constitutional: alert, oriented, well developed Psych: nl mood/affect Eyes: EOMI, PERRL, nl sclera ENMT: nl external ears & nose Neck: non-tender Respiratory: clear to auscultation Cardiovascular: nl pulses Gastrointestinal: non-tender, soft Musculoskeletal: nl extremities to inspection Extremities: normal pulses Neurological: nl mental status, nl speech Skin: nl turgor Lymph: nontender Results Result Diagram: 10/20/16 0620 10/20/16 0620 Results 24 hrs Laboratory Tests Test 10/20/16 06:20 Anion Gap 15 Basophils # 0.1 Basophils % 0.6 Blood Morphology Comment Blood Urea Nitrogen 25 H Calcium Level 8.5 Carbon Dioxide Level 24 Chloride Level 102 Creatinine 1.19 Eosinophils # 0.3 Eosinophils % 2.9 Glucose Level 91 Hematocrit 35.5 L Hemoglobin 12.3 L Lymphocytes # 1.6 Lymphocytes % 15.4 Mean Corpuscular Hemoglobin 33.1 H Mean Corpuscular Hemoglobin Concent 34.8 Mean Corpuscular Volume 95.4 Mean Platelet Volume 9.0 Monocytes # 0.7 Monocytes % 6.6 Neutrophils # 7.6 H Neutrophils % 74.5 Nucleated Red Blood Cells # 0.0 Nucleated Red Blood Cells % 0.0 Platelet Count 230 Potassium Level 4.3 Red Blood Count 3.72 L Red Cell Distribution Width 14.7 H Sodium Level 137 White Blood Count 10.1 Medications Medications Current Medications Apixaban (Eliquis) 5 mg BID PO Last administered on 10/20/16 08:47; Admin Dose 5 MG; Start 10/17/16 at 21:00 Lisinopril (Zestril) 2.5 mg DAILY PO Last administered on 10/20/16 08:46; Admin Dose 2.5 MG; Start 10/18/16 at 09:00 Pantoprazole (Protonix Tab) 40 mg DAILY@06 PO Last administered on 10/20/16 06 :43; Admin Dose 40 MG; Start 10/18/16 at 06:00 Ondansetron HCl (Zofran Inj) 4 mg Q6H PRN IV NAUSEA AND/OR VOMITING Last administered on 10/18/16 06:02; Admin Dose 4 MG; Start 10/18/16 at 06:00 Atenolol (Tenormin) 100 mg DAILY PO Last administered on 10/20/16 08:47; Admin Dose 100 MG; Start 10/20/16 at 09:00 Diltiazem HCl (Cardizem Cd) 240 mg DAILY PO Last administered on 10/20/16 10: 06; Admin Dose 240 MG; Start 10/20/16 at 09:00 DONG ADORNO Oct 20, 2016 13:29
[2016-10-21] VITALS (12 sets, daily range): BP systolic 99–110; BP diastolic 64–73; PULSE 60–93; RESP 15–73
[2016-10-21] MEDS: PANTOPRAZOLE (EC) 40 MG TAB PO SCH (05:47)
[2016-10-21 07:56] LABS: BASOPHIL # 0.1 10^3/ul (0.0-0.1); BASOPHILS % 0.6 % (0.0-2.0); EOSINOPHILS # 0.2 10^3/ul (0.0-0.5); EOSINOPHILS % 2.7 % (0.0-7.0); HEMATOCRIT 37.3 % (42.0-52.0); HEMOGLOBIN 13.1 g/dl (14.0-18.0); LYMPHOCYTES # 1.6 10^3/ul (0.8-2.9); LYMPHOCYTES % 17.5 % (15.0-51.0); MEAN CORPUSCULAR HEMOGLOBIN 33.1 pg (29.0-33.0); MEAN CORPUSCULAR VOLUME 94.5 fl (82.0-101.0); MEAN PLATELET VOLUME 9.1 fl (7.4-10.4); MONOCYTE # 0.6 10^3/ul (0.3-0.9); MONOCYTES % 6.7 % (0.0-11.0); NEUTROPHIL # 6.5 10^3/ul (1.6-7.5); NEUTROPHILS % 72.5 % (39.0-77.0); PLATELET COUNT 253 10^3/UL (140-440); RED BLOOD COUNT 3.95 10^6/ul (4.70-6.10); RED CELL DISTRIBUTION WIDTH 14.9 % (11.5-14.5)
[2016-10-21 08:02] LABS: POTASSIUM 4.4 mmol/L (3.5-5.1)
[2016-10-21 08:04] LABS: CREATININE 1.2 mg/dl (0.61-1.24)
[2016-10-21 08:06] LABS: CALCIUM 8.6 mg/dl (8.4-10.2)
[2016-10-21 08:16] LABS: CONDITION 1; LH ANALYZER COMMENTS 1
--- NOTE | 2016-10-21 08:40 | CONS ---
Date/Time of Note Date/Time of Note DATE: 10/21/16 TIME: 08:38 Consultation Date/Type/Reason Admit Date/Time Oct 17, 2016 at 18:15 Initial Consult Date 24 HR Interval Summary Free Text/Dictation Assessment/Plan 1. Atrial fibrillation with rapid ventricular response. 2. Cardiomyopathy with an EF 50% 3. Mitral valve regurgitation - mod-severe 4. History of rheumatic heart disease. -increase av blockers -on eliquis -will continue amiodarone as may cardiovert in the future -possible cardioversion in 8 weeks if still afib d/c planning ok Constitutional: no complaints Exam/Review of Systems Vital Signs Vitals Vital Signs Date Time Temp Pulse Resp B/P Pulse Ox O2 Delivery O2 Flow Rate FiO2 10/21/16 07:15 97.7 53 16 106/66 97 10/20/16 20:15 Room Air 10/17/16 22:15 2.0 Intake and Output 10/20/16 10/20/16 10/21/16 15:00 23:00 07:00 Intake Total 1200 ml 600 ml Balance 1200 ml 600 ml Exam Constitutional: alert, oriented, well developed Psych: no complaints Respiratory: clear to auscultation, normal air movement Cardiovascular: S3, S4, bruits, diastolic murmur, gallop, irregular rhythm, jugular venous distention (JVD), murmurs/extra sounds, nl pulses, other, regular rate and rhythm, rub, systolic murmur, No edema Gastrointestinal: non-tender, soft Extremities: cyanosis, edema, normal pulses, other, palpable cord, pitting pedal edema, tenderness Results Result Diagram: 10/21/16 0635 10/21/16 0635 Results 24 hrs Laboratory Tests Test 10/21/16 06:35 Anion Gap 15 Basophils # 0.1 Basophils % 0.6 Blood Morphology Comment Blood Urea Nitrogen 24 H Calcium Level 8.6 Carbon Dioxide Level 24 Chloride Level 103 Creatinine 1.20 Eosinophils # 0.2 Eosinophils % 2.7 Glucose Level 101 Hematocrit 37.3 L Hemoglobin 13.1 L Lymphocytes # 1.6 Lymphocytes % 17.5 Mean Corpuscular Hemoglobin 33.1 H Mean Corpuscular Hemoglobin Concent 35.0 Mean Corpuscular Volume 94.5 Mean Platelet Volume 9.1 Monocytes # 0.6 Monocytes % 6.7 Neutrophils # 6.5 Neutrophils % 72.5 Nucleated Red Blood Cells # 0.0 Nucleated Red Blood Cells % 0.0 Platelet Count 253 Potassium Level 4.4 Red Blood Count 3.95 L Red Cell Distribution Width 14.9 H Sodium Level 138 White Blood Count 9.0 Medications Medications Current Medications Apixaban (Eliquis) 5 mg BID PO Last administered on 10/20/16 20:51; Admin Dose 5 MG; Start 10/17/16 at 21:00 Lisinopril (Zestril) 2.5 mg DAILY PO Last administered on 10/20/16 08:46; Admin Dose 2.5 MG; Start 10/18/16 at 09:00 Pantoprazole (Protonix Tab) 40 mg DAILY@06 PO Last administered on 10/21/16 05 :47; Admin Dose 40 MG; Start 10/18/16 at 06:00 Ondansetron HCl (Zofran Inj) 4 mg Q6H PRN IV NAUSEA AND/OR VOMITING Last administered on 10/18/16 06:02; Admin Dose 4 MG; Start 10/18/16 at 06:00 Atenolol (Tenormin) 100 mg DAILY PO Last administered on 10/20/16 08:47; Admin Dose 100 MG; Start 10/20/16 at 09:00 Diltiazem HCl (Cardizem Cd) 240 mg DAILY PO Last administered on 10/20/16 10: 06; Admin Dose 240 MG; Start 10/20/16 at 09:00 AMA COUCH MD Oct 21, 2016 08:40
[2016-10-21] MEDS: DILTIAZEM (CD) 240 MG CAP PO SCH (09:00)
[2016-10-21] MEDS: APIXABAN 5 MG TABLET PO SCH ×2 (09:27→20:13)
[2016-10-21] MEDS: ATENOLOL 100 MG TAB PO SCH (09:27)
[2016-10-21] MEDS: LISINOPRIL 5 MG TAB PO SCH (09:28)
[2016-10-21] MEDS: DILTIAZEM (CD) 180 MG CAP PO SCH (10:41)
--- NOTE | 2016-10-21 11:27 | PN ---
Date/Time of Note Date/Time of Note DATE: 10/21/16 TIME: 11:26 Assessment/Plan VTE Prophylaxis VTE Prophylaxis Intervention: other Lines/Catheters IV [facility]ter Type (from [facility]): Peripheral IV Urinary Cath still in place: No Assessment/Plan Assessment/Plan 1. Atrial fibrillation with rapid ventricular response. - PER CARDIOLOGY 2. Cardiomyopathy. 3. Mitral valve regurgitation. 4. History of rheumatic heart disease. 5. Poor medical compliance. 6. Acute kidney injury resolving - BMP AM - Continue to monitor renal function. Continue to monitor renal function. We will restart Eliquis and bridge Lovenox for atrial fibrillation. Further recommendations based on clinical course. Subjective 24 Hr Interval Summary Constitutional: other Eyes: no complaints ENT: no complaints Respiratory: no complaints Cardiovascular: no complaints Gastrointestinal: nausea Genitourinary: no complaints Musculoskeletal: no complaints Skin: no complaints Neurologic: no complaints Endocrine: no complaints Psychological: no complaints Immunologic: no complaints Exam/Review of Systems Vital Signs Vitals Vital Signs Date Time Temp Pulse Resp B/P Pulse Ox O2 Delivery O2 Flow Rate FiO2 10/21/16 11:05 97.7 68 17 110/73 98 10/20/16 20:15 Room Air 10/17/16 22:15 2.0 Intake and Output 10/20/16 10/20/16 10/21/16 15:00 23:00 07:00 Intake Total 1200 ml 600 ml Balance 1200 ml 600 ml Exam Constitutional: alert, well developed Psych: nl mood/affect Head: atraumatic ENMT: nl external ears & nose Neck: non-tender Respiratory: clear to auscultation Cardiovascular: nl pulses Gastrointestinal: non-tender, soft Musculoskeletal: nl extremities to inspection Extremities: normal pulses Neurological: nl mental status, nl speech Skin: nl turgor Lymph: nontender Results Result Diagram: 10/21/16 0635 10/21/16 0635 Results 24 hrs Laboratory Tests Test 10/21/16 06:35 Anion Gap 15 Basophils # 0.1 Basophils % 0.6 Blood Morphology Comment Blood Urea Nitrogen 24 H Calcium Level 8.6 Carbon Dioxide Level 24 Chloride Level 103 Creatinine 1.20 Eosinophils # 0.2 Eosinophils % 2.7 Glucose Level 101 Hematocrit 37.3 L Hemoglobin 13.1 L Lymphocytes # 1.6 Lymphocytes % 17.5 Mean Corpuscular Hemoglobin 33.1 H Mean Corpuscular Hemoglobin Concent 35.0 Mean Corpuscular Volume 94.5 Mean Platelet Volume 9.1 Monocytes # 0.6 Monocytes % 6.7 Neutrophils # 6.5 Neutrophils % 72.5 Nucleated Red Blood Cells # 0.0 Nucleated Red Blood Cells % 0.0 Platelet Count 253 Potassium Level 4.4 Red Blood Count 3.95 L Red Cell Distribution Width 14.9 H Sodium Level 138 White Blood Count 9.0 Medications Medications Current Medications Apixaban (Eliquis) 5 mg BID PO Last administered on 10/21/16 09:27; Admin Dose 5 MG; Start 10/17/16 at 21:00 Lisinopril (Zestril) 2.5 mg DAILY PO Last administered on 10/21/16 09:28; Admin Dose 2.5 MG; Start 10/18/16 at 09:00 Pantoprazole (Protonix Tab) 40 mg DAILY@06 PO Last administered on 10/21/16 05 :47; Admin Dose 40 MG; Start 10/18/16 at 06:00 Ondansetron HCl (Zofran Inj) 4 mg Q6H PRN IV NAUSEA AND/OR VOMITING Last administered on 10/18/16 06:02; Admin Dose 4 MG; Start 10/18/16 at 06:00 Atenolol (Tenormin) 100 mg DAILY PO Last administered on 10/21/16 09:27; Admin Dose 100 MG; Start 10/20/16 at 09:00 Diltiazem HCl (Cardizem Cd) 180 mg DAILY PO Last administered on 10/21/16 10: 41; Admin Dose 180 MG; Start 10/21/16 at 10:00 DONG ADORNO Oct 21, 2016 11:27
--- NOTE | 2016-10-21 19:49 | RADRPT ---
PROCEDURE: CT abdomen and pelvis without contrast. CLINICAL INDICATION: Abdominal Pain TECHNIQUE: CT scan of the abdomen and pelvis without contrast was performed and is reconstructed a t 2.5 mm contiguous axial intervals from the dome of the diaphragm to the inferior pubic rami.. The patient was scanned without intravenous contrast. Sagittal and coronal reformatted images were obt ained from the axial source images. The calculated radiation dose measures 621 mGy centimeters. The CTDI measures 11 mGy. COMPARISON: CT abdomen and pelvis June 10, 2012 FINDINGS: No alveolar infiltrate or mass is seen at the lung bases. There is a tiny left pleural effusion and a small to moderate-sized right pleural effusion. Punctate pleural calcification is present on the right. There is cardiomegaly. The liver is of normal size, contour and attenuation with no mass or ductal dilatation. No gallstone s are visualized, however, the wall of the gallbladder is somewhat indistinct. Findings may represe nt evidence of cholecystitis. No splenic, adrenal or pancreatic abnormalities present. Kidneys are of normal size and contour. No hydronephrosis, calculus or masses seen. Ureters are o f normal course and caliber with no stone. No bladder mass or stone is present. Prostate and semina l vesicles are normal. There is no aneurysm. No adenopathy is present. No bowel mass or obstruction is present. The appendix is not confidently visualized, however, no inflamed appendix is seen. No phlegmon, ascites or pneumoperitoneum is visualized. There is degenerative disk disease at L3-L4. IMPRESSION: No evidence of urolithiasis, obstructive uropathy, diverticulitis or appendicitis. No gallstones seen. Indistinct wall of the gallbladder. Cholecystitis cannot be ruled out. Consid er ultrasound for further evaluation. Bilateral pleural effusions, right greater than left with bibasilar atelectasis. .Sher Mann MD, MD Date Time Electronically viewed and signed by .Sher Mann MD, on 10/21/2016 19:49 .A/
[2016-10-22] VITALS (14 sets, daily range): BP systolic 90–117; BP diastolic 64–85; PULSE 50–120; RESP 18–22
[2016-10-22] MEDS: PANTOPRAZOLE (EC) 40 MG TAB PO SCH (05:51)
[2016-10-22 07:11] LABS: BASOPHILS % 0.4 % (0.0-2.0); EOSINOPHILS # 0.3 10^3/ul (0.0-0.5); EOSINOPHILS % 2.9 % (0.0-7.0); HEMATOCRIT 38.6 % (42.0-52.0); HEMOGLOBIN 13.4 g/dl (14.0-18.0); LYMPHOCYTES # 1.8 10^3/ul (0.8-2.9); LYMPHOCYTES % 17.3 % (15.0-51.0); MEAN CORPUSCULAR HEMOGLOBIN 33.2 pg (29.0-33.0); MEAN CORPUSCULAR HGB CONC 34.8 g/dl (32.0-37.0); MEAN CORPUSCULAR VOLUME 95.3 fl (82.0-101.0); MONOCYTE # 0.7 10^3/ul (0.3-0.9); MONOCYTES % 6.7 % (0.0-11.0); NEUTROPHIL # 7.4 10^3/ul (1.6-7.5); NEUTROPHILS % 72.7 % (39.0-77.0); PLATELET COUNT 281 10^3/UL (140-440); RED BLOOD COUNT 4.05 10^6/ul (4.70-6.10); RED CELL DISTRIBUTION WIDTH 14.5 % (11.5-14.5); UNCORRECTED WBC 10.2 10^3/ul (4.8-10.8); WHITE BLOOD COUNT 10.2 10^3/ul (4.8-10.8)
[2016-10-22 07:16] LABS: CONDITION 1
[2016-10-22 07:35] LABS: CREATININE 1.1 mg/dl (0.61-1.24)
[2016-10-22 07:36] LABS: CALCIUM 9.1 mg/dl (8.4-10.2)
[2016-10-22] MEDS: ATENOLOL 100 MG TAB PO SCH (08:08)
[2016-10-22] MEDS: APIXABAN 5 MG TABLET PO SCH ×2 (08:08→20:52)
[2016-10-22] MEDS: LISINOPRIL 5 MG TAB PO SCH (08:08)
[2016-10-22] MEDS: DILTIAZEM (CD) 180 MG CAP PO SCH ×2 (08:09→11:26)
--- NOTE | 2016-10-22 17:05 | PN ---
Date/Time of Note Date/Time of Note DATE: 10/22/16 TIME: 17:03 Assessment/Plan VTE Prophylaxis VTE Prophylaxis Intervention: SCD's Lines/Catheters IV [facility] Type (from [facility]): Saline Lock Urinary Cath still in place: No Assessment/Plan Chief Complaint/Hosp Course ASSESSMENT: 1. Atrial fibrillation with rapid ventricular response. is following in cardiology consultation. Continue Eliquis. Continue atenolol and diltiazem. 2. Cardiomyopathy. 3. Mitral valve regurgitation. 4. History of rheumatic heart disease. 5. Poor medical compliance. 6. Abdominal pain, DrMikie Banegas is asked to see patient from gastroenterology standpoint. Abdominal ultrasound. Protonix for peptic ulcer disease prophylaxis. Further recommendations based on clinical course. Plan of care discussed with Dr. Noel. Problems: Subjective 24 Hr Interval Summary Free Text/Dictation Patient's complains of abdominal pain, which patient associates with medication refused higher dose of diltiazem, took 180 mg of diltiazem. Atrial fibrillation at the rate goes to 120 per telemetry Exam/Review of Systems Vital Signs Vitals Vital Signs Date Time Temp Pulse Resp B/P Pulse Ox O2 Delivery O2 Flow Rate FiO2 10/22/16 16:58 73 10/22/16 15:17 98.3 18 117/75 99 10/20/16 20:15 Room Air Intake and Output 10/21/16 10/21/16 10/22/16 15:00 23:00 07:00 Intake Total 1000 ml Balance 1000 ml Exam GENERAL: Well-developed, well-nourished male, currently is awake, alert. HEENT: Head is atraumatic, normocephalic. PERRLA. NECK: Supple, no mass, no thyromegaly. JVD is present. LUNGS: Clear bilaterally. CARDIOVASCULAR: Irregularly irregular rhythm. S2, variable S1, systolic murmur. ABDOMEN: Round, soft, nondistended, nontender. Bowel sounds present. There is no guarding, no tenderness. EXTREMITIES: No edema, clubbing, cyanosis. Pulses equal bilaterally 2+. SKIN: No rash, petechiae noted. NEUROLOGIC: The patient is awake, alert and oriented x4. Results Result Diagram: 10/22/16 0555 10/22/16 0555 Results 24 hrs Laboratory Tests Test 10/22/16 05:55 Anion Gap 17 H Basophils # 0.0 Basophils % 0.4 Blood Urea Nitrogen 21 H Calcium Level 9.1 Carbon Dioxide Level 23 Chloride Level 104 Creatinine 1.10 Eosinophils # 0.3 Eosinophils % 2.9 Glucose Level 85 Hematocrit 38.6 L Hemoglobin 13.4 L Lymphocytes # 1.8 Lymphocytes % 17.3 Mean Corpuscular Hemoglobin 33.2 H Mean Corpuscular Hemoglobin Concent 34.8 Mean Corpuscular Volume 95.3 Mean Platelet Volume 9.0 Monocytes # 0.7 Monocytes % 6.7 Neutrophils # 7.4 Neutrophils % 72.7 Nucleated Red Blood Cells # 0.0 Nucleated Red Blood Cells % 0.0 Platelet Count 281 Potassium Level 5.0 Red Blood Count 4.05 L Red Cell Distribution Width 14.5 Sodium Level 139 White Blood Count 10.2 Medications Medications Current Medications Apixaban (Eliquis) 5 mg BID PO Last administered on 10/22/16 08:08; Admin Dose 5 MG; Start 10/17/16 at 21:00 Lisinopril (Zestril) 2.5 mg DAILY PO Last administered on 10/22/16 08:08; Admin Dose 2.5 MG; Start 10/18/16 at 09:00 Pantoprazole (Protonix Tab) 40 mg DAILY@06 PO Last administered on 10/22/16 05 :51; Admin Dose 40 MG; Start 10/18/16 at 06:00 Ondansetron HCl (Zofran Inj) 4 mg Q6H PRN IV NAUSEA AND/OR VOMITING Last administered on 10/18/16 06:02; Admin Dose 4 MG; Start 10/18/16 at 06:00 Atenolol (Tenormin) 100 mg DAILY PO Last administered on 10/22/16 08:08; Admin Dose 100 MG; Start 10/20/16 at 09:00 Diltiazem HCl (Cardizem Cd) 180 mg DAILY PO Last administered on 10/22/16 11: 26; Admin Dose 180 MG; Start 10/21/16 at 10:00 BJORN GOYAL Oct 22, 2016 17:05
--- NOTE | 2016-10-22 17:13 | PN ---
Date/Time of Note Date/Time of Note DATE: 10/22/16 TIME: 17:12 Assessment/Plan VTE Prophylaxis VTE Prophylaxis Intervention: SCD's Lines/Catheters IV [facility] Saline Lock Urinary Cath still in place: No Assessment/Plan Chief Complaint/Hosp Course The patient is a 55-year-old gentleman known to me from previous admission. The patient with a history of cardiomyopathy, mitral valve regurgitation, atrial fibrillation and tricuspid regurgitation. The patient has a history of admission for atrial fibrillation with rapid ventricular response and refused cardioversion per last admission and was discharged home on medical management for atrial fibrillation. The patient told me that he ran out of his medication 5 days ago and was supposed to see his primary care physician in the office tomorrow. However, the patient developed shortness of breath and palpitations and presented to the emergency room. In the emergency room, patient was found to have atrial fibrillation with rapid ventricular response. The patient was started on Cardizem drip and will be admitted for further evaluation and management to the intensive care unit. The patient denied any fever or chills. He does have nausea Problems: Assessment/Plan 1. Atrial fibrillation with rapid ventricular response. 2. Cardiomyopathy with an EF 50% 3. Mitral valve regurgitation - mod-severe 4. History of rheumatic heart disease. -continue av blockers -on eliquis -will continue amiodarone as may cardiovert in the future -possible cardiovversion in 8 weeks if still afib d/c planning ok Subjective 24 Hr Interval Summary Free Text/Dictation The patient with no cahnge Exam/Review of Systems Vital Signs Vitals Vital Signs Date Time Temp Pulse Resp B/P Pulse Ox O2 Delivery O2 Flow Rate FiO2 10/22/16 16:58 73 10/22/16 15:17 98.3 18 117/75 99 10/20/16 20:15 Room Air Intake and Output 10/21/16 10/21/16 10/22/16 15:00 23:00 07:00 Intake Total 1000 ml Balance 1000 ml Results Result Diagram: 10/22/16 0555 10/22/16 0555 Results 24 hrs Laboratory Tests Test 10/22/16 05:55 Anion Gap 17 H Basophils # 0.0 Basophils % 0.4 Blood Urea Nitrogen 21 H Calcium Level 9.1 Carbon Dioxide Level 23 Chloride Level 104 Creatinine 1.10 Eosinophils # 0.3 Eosinophils % 2.9 Glucose Level 85 Hematocrit 38.6 L Hemoglobin 13.4 L Lymphocytes # 1.8 Lymphocytes % 17.3 Mean Corpuscular Hemoglobin 33.2 H Mean Corpuscular Hemoglobin Concent 34.8 Mean Corpuscular Volume 95.3 Mean Platelet Volume 9.0 Monocytes # 0.7 Monocytes % 6.7 Neutrophils # 7.4 Neutrophils % 72.7 Nucleated Red Blood Cells # 0.0 Nucleated Red Blood Cells % 0.0 Platelet Count 281 Potassium Level 5.0 Red Blood Count 4.05 L Red Cell Distribution Width 14.5 Sodium Level 139 White Blood Count 10.2 Medications Medications Current Medications Apixaban (Eliquis) 5 mg BID PO Last administered on 10/22/16 08:08; Admin Dose 5 MG; Start 10/17/16 at 21:00 Lisinopril (Zestril) 2.5 mg DAILY PO Last administered on 10/22/16 08:08; Admin Dose 2.5 MG; Start 10/18/16 at 09:00 Pantoprazole (Protonix Tab) 40 mg DAILY@06 PO Last administered on 10/22/16 05 :51; Admin Dose 40 MG; Start 10/18/16 at 06:00 Ondansetron HCl (Zofran Inj) 4 mg Q6H PRN IV NAUSEA AND/OR VOMITING Last administered on 10/18/16 06:02; Admin Dose 4 MG; Start 10/18/16 at 06:00 Atenolol (Tenormin) 100 mg DAILY PO Last administered on 10/22/16 08:08; Admin Dose 100 MG; Start 10/20/16 at 09:00 Diltiazem HCl (Cardizem Cd) 180 mg DAILY PO Last administered on 10/22/16 11: 26; Admin Dose 180 MG; Start 10/21/16 at 10:00 Pantoprazole (Protonix Tab) 40 mg DAILY@06 PO ; Start 10/23/16 at 06:00; Status EDVIN QUESADA MD Oct 22, 2016 17:13
--- NOTE | 2016-10-22 18:08 | RADRPT ---
PROCEDURE: US Abdomen (right upper quadrant). CLINICAL INDICATION: Right upper quadrant abdomen pain. TECHNIQUE: Multiple real-time longitudinal and transverse images of the right upper quadrant of th e abdomen were acquired utilizing a curved array transducer. Images were reviewed on a high-resoluti on PACS workstation. COMPARISON: None FINDINGS: The liver is normal in size and echogenicity. There is no focal hepatic lesion. Color Doppler and pulsed Doppler sonography demonstrate normal a ntegrade flow in the portal vein. There are no gallstones in the gallbladder. There is gallbladder wall thickening measuring 6.5 mm. There is no pericholecystic fluid collection. The bile ducts are normal with the common bile duct measuring 3.3 mm in diameter. The visualized portions of the pancreas are unremarkable with obscuration of the tail of the pancrea s. No free fluid is present. The right kidney measures 9.2 cm. There is normal echogenicity of the right kidney. There is no p erinephric fluid collection. No hydronephrosis, mass, or calculus is seen. IMPRESSION: 1. Gallbladder wall thickening. No gallstones. This may indicate acalculous cholecystitis. Clinic al correlation advised. 2. Otherwise unremarkable study. RPTAT: QQ .Daniel Croft MD, MD Date Time Electronically viewed and signed by .Daniel Croft MD, on 10/22/2016 18:08 .R/
[2016-10-22 19:26] LABS: ALBUMIN 3.6 g/dl (3.3-4.9)
[2016-10-22 19:29] LABS: ALBUMIN/GLOBULIN RATIO 1.16; BILIRUBIN,INDIRECT 0.2 mg/dl (0-1.1); BILIRUBIN,TOTAL 0.2 mg/dl (0.2-1.3); CREATININE 1.24 mg/dl (0.61-1.24); TOTAL PROTEIN 6.7 g/dl (6.1-8.1)
[2016-10-22 19:53] LABS: AMYLASE 63 U/L (11-123); CALCIUM 8.8 mg/dl (8.4-10.2)
--- NOTE | 2016-10-22 21:59 | CONS ---
DATE OF ADMISSION: 10/17/2016 DATE OF CONSULTATION: TYPE OF CONSULTATION: Gastroenterology. Dear Dr. Noel: Thank you for asking me to see Elda in GI consultation. HISTORY OF PRESENT ILLNESS: As you know, the patient is a 55-year-old male who was admitte d to this hospital on 10/17/2016 because of a history of abdominal discomfort and at that time, he h ad atrial fibrillation with fast ventricular response. At that time, he was short of breath includi ng palpitation and has been here since then. He says that in the past few days he has been developi ng abdominal discomfort, mostly upper abdomen, like a pressure. He says he gets the pressure-like s ymptoms of the upper abdomen when he takes metoprolol and also diltiazem. Diltiazem also causes rec amaris burning, some blood around the stool also noted from time to time. He has atrial fibrillation a nd he is refusing the cardioversion. MEDICATIONS: On admission he was taking medications which includes: 1. Throat lozenges. 2. Eliquis. 3. Pantoprazole. 4. Lopressor. 5. Lisinopril. 6. Guaifenesin. 7. Cardizem. 8. Promethazine. 9. Amiodarone. The patient does not smoke or drink, but he used to smoke and drink in the past. In addition to the history of atrial fibrillation, he has a mitral valve regurgitation, tricuspid regurgitation, cardi omyopathy. No history of vomiting. He does have some nausea. PAST MEDICAL HISTORY: No surgeries. SOCIAL HISTORY: He was a painter spring. Not a smoker at this time. PHYSICAL EXAMINATION: GENERAL: The patient is a 55-year-old gentleman who at this time is alert, is short of shaq ath when he is speaking. CARDIOVASCULAR: Irregular heart sounds. VITAL SIGNS: Pulse rate around 73 today, at one time today he had 120, blood pressure 114/77. RESPIRATORY: Lungs clear. Some wheezing heard. ABDOMEN: Showed unremarkable findings. RECTAL: Exam is deferred. LABORATORY WORKUP: The hemoglobin is 13.4, WBC is 10,200, platelet is 281,000. The potassium is 5. 0, sodium 139, BUN is 21, creatinine is 1.10. The liver panel is not in the chart. IMAGING STUDIES: CAT scan of the abdomen shows evidence of no kidney stones, no gallstones; however , gallbladder is indistinct, cholecystitis is considered, bilateral pleural effusion noted as well. CLINICAL IMPRESSION: The patient presenting with history of upper abdominal pain, abdominal discomf ort secondary to what he thinks taking metoprolol and diltiazem. Also diltiazem causes rectal burni ng and blood around the stools. Certainly, patient is a candidate to have peptic ulcer disease, gallbladder disease, pancreatitis. Doubt liver disease. He does have a history of constipation and burning in the rectum. He could have anal fissure. Roscoe rectal neoplasm should be ruled out. PLAN: At this time, I agree with ultrasound of the upper abdomen to look into the gallbladder disea se. Recommend a CMP to include a liver panel, amylase and lipase. Meanwhile, continue Protonix and he may need upper endoscopy. Once again, doctor, thank you for this consultation. Dictated By: ZA ESPINO MD [place]/NATALIA Conf#: [id number] DID#: [id number] CC: NADER NOEL MD;*EndCC*
[2016-10-23] VITALS (11 sets, daily range): BP systolic 103–111; BP diastolic 58–83; PULSE 75–124; RESP 18–20
[2016-10-23] MEDS: PANTOPRAZOLE (EC) 40 MG TAB PO SCH (05:39)
[2016-10-23] MEDS ORDERED: PANTOPRAZOLE (EC) 40 MG TAB PO SCH (06:00)
[2016-10-23] MEDS: LISINOPRIL 5 MG TAB PO SCH (08:20)
[2016-10-23] MEDS: DILTIAZEM (CD) 180 MG CAP PO SCH (08:20)
[2016-10-23] MEDS: APIXABAN 5 MG TABLET PO SCH ×2 (08:20→22:19)
[2016-10-23] MEDS: ATENOLOL 100 MG TAB PO SCH (08:21)
--- NOTE | 2016-10-23 15:41 | CONS ---
Date/Time of Note Date/Time of Note DATE: 10/23/16 TIME: 15:38 Assessment/Plan Assessment/Plan Additional Assessment/Plan Atrial fibrillation, improved Cardiomyopathy with an EF 50% Mitral valve regurgitation - mod-severe History of rheumatic heart disease. -Heart rate well-controlled on current medication regimen. Continue anticoagulation. DC planning Consultation Date/Type/Reason Admit Date/Time Oct 17, 2016 at 18:15 Initial Consult Date Type of Consultation: cv 24 HR Interval Summary Free Text/Dictation Denies shortness of breath, palpitations or chest pain Exam/Review of Systems Vital Signs Vitals Vital Signs Date Time Temp Pulse Resp B/P Pulse Ox O2 Delivery O2 Flow Rate FiO2 10/23/16 15:11 98.8 101 20 107/70 95 10/20/16 20:15 Room Air Intake and Output 10/22/16 10/22/16 10/23/16 15:00 23:00 07:00 Intake Total 720 ml 250 ml Balance 720 ml 250 ml Exam No apparent distress Constitutional: alert, oriented Head: normocephalic Neck: supple Respiratory: other (course breath sounds bilaterally, no wheezing) Cardiovascular: irregular rhythm, other (S1-S2 heard) Gastrointestinal: bowel sounds, non-tender, soft Extremities: other (no edema) Results Result Diagram: 10/22/16 0555 10/22/16 1850 Results 24 hrs Laboratory Tests Test 10/22/16 18:50 Alanine Aminotransferase (ALT/SGPT) 114 H Albumin 3.6 Albumin/Globulin Ratio 1.16 Alkaline Phosphatase 156 H Amylase Level 63 Anion Gap 17 H Aspartate Amino Transf (AST/SGOT) 132 H Blood Urea Nitrogen 23 H Calcium Level 8.8 Carbon Dioxide Level 25 Chloride Level 104 Creatinine 1.24 Direct Bilirubin 0.00 Globulin 3.10 Glucose Level 127 # Indirect Bilirubin 0.2 Lipase 149 Potassium Level 5.0 Sodium Level 141 Total Bilirubin 0.2 Total Protein 6.7 Medications Medications Current Medications Apixaban (Eliquis) 5 mg BID PO Last administered on 10/23/16 08:20; Admin Dose 5 MG; Start 10/17/16 at 21:00 Lisinopril (Zestril) 2.5 mg DAILY PO Last administered on 10/23/16 08:20; Admin Dose 2.5 MG; Start 10/18/16 at 09:00 Pantoprazole (Protonix Tab) 40 mg DAILY@06 PO Last administered on 10/23/16 05 :39; Admin Dose 40 MG; Start 10/18/16 at 06:00 Ondansetron HCl (Zofran Inj) 4 mg Q6H PRN IV NAUSEA AND/OR VOMITING Last administered on 10/18/16 06:02; Admin Dose 4 MG; Start 10/18/16 at 06:00 Atenolol (Tenormin) 100 mg DAILY PO Last administered on 10/23/16 08:21; Admin Dose 100 MG; Start 10/20/16 at 09:00 Diltiazem HCl (Cardizem Cd) 180 mg DAILY PO Last administered on 10/23/16 08: 20; Admin Dose 180 MG; Start 10/21/16 at 10:00 Wayne Hoyt DO Oct 23, 2016 15:41
--- NOTE | 2016-10-23 17:00 | PN ---
Date/Time of Note Date/Time of Note DATE: 10/23/16 TIME: 16:43 Assessment/Plan VTE Prophylaxis VTE Prophylaxis Intervention: SCD's Lines/Catheters IV [facility]ter Type (from [facility]): Saline Lock Urinary Cath still in place: No Assessment/Plan Chief Complaint/Hosp Course ASSESSMENT: 1. Atrial fibrillation with rapid ventricular response. is following in cardiology consultation. Continue Eliquis. Continue atenolol and diltiazem. 2. Cardiomyopathy. 3. Mitral valve regurgitation. 4. History of rheumatic heart disease. 5. Poor medical compliance. 6. Abdominal pain, Dr. Dr. Banegas is following from gastroenterology standpoint. 7. possible acalculous cholecystitis, started on Zosyn. Protonix for peptic ulcer disease prophylaxis. Further recommendations based on clinical course. Plan of care discussed with Dr. Noel. Problems: Subjective 24 Hr Interval Summary Free Text/Dictation A-fib at controlled rate, denies nausea vomiting. Exam/Review of Systems Vital Signs Vitals Vital Signs Date Time Temp Pulse Resp B/P Pulse Ox O2 Delivery O2 Flow Rate FiO2 10/23/16 16:39 124 10/23/16 15:11 98.8 20 107/70 95 10/20/16 20:15 Room Air Intake and Output 10/22/16 10/22/16 10/23/16 14:59 22:59 06:59 Intake Total 720 ml 250 ml Balance 720 ml 250 ml Exam GENERAL: Well-developed, well-nourished male, currently is awake, alert. HEENT: Head is atraumatic, normocephalic. PERRLA. NECK: Supple, no mass, no thyromegaly. JVD is present. LUNGS: Clear bilaterally. CARDIOVASCULAR: Irregularly irregular rhythm. S2, variable S1, systolic murmur. ABDOMEN: Round, soft, nondistended, nontender. Bowel sounds present. There is no guarding, no tenderness. EXTREMITIES: No edema, clubbing, cyanosis. Pulses equal bilaterally 2+. SKIN: No rash, petechiae noted. NEUROLOGIC: The patient is awake, alert and oriented x4. Results Result Diagram: 10/22/16 0555 10/22/16 1850 Results 24 hrs Laboratory Tests Test 10/22/16 18:50 Alanine Aminotransferase (ALT/SGPT) 114 H Albumin 3.6 Albumin/Globulin Ratio 1.16 Alkaline Phosphatase 156 H Amylase Level 63 Anion Gap 17 H Aspartate Amino Transf (AST/SGOT) 132 H Blood Urea Nitrogen 23 H Calcium Level 8.8 Carbon Dioxide Level 25 Chloride Level 104 Creatinine 1.24 Direct Bilirubin 0.00 Globulin 3.10 Glucose Level 127 # Indirect Bilirubin 0.2 Lipase 149 Potassium Level 5.0 Sodium Level 141 Total Bilirubin 0.2 Total Protein 6.7 Medications Medications Current Medications Apixaban (Eliquis) 5 mg BID PO Last administered on 10/23/16 08:20; Admin Dose 5 MG; Start 10/17/16 at 21:00 Lisinopril (Zestril) 2.5 mg DAILY PO Last administered on 10/23/16 08:20; Admin Dose 2.5 MG; Start 10/18/16 at 09:00 Pantoprazole (Protonix Tab) 40 mg DAILY@06 PO Last administered on 10/23/16 05 :39; Admin Dose 40 MG; Start 10/18/16 at 06:00 Ondansetron HCl (Zofran Inj) 4 mg Q6H PRN IV NAUSEA AND/OR VOMITING Last administered on 10/18/16 06:02; Admin Dose 4 MG; Start 10/18/16 at 06:00 Atenolol (Tenormin) 100 mg DAILY PO Last administered on 10/23/16 08:21; Admin Dose 100 MG; Start 10/20/16 at 09:00 Diltiazem HCl (Cardizem Cd) 180 mg DAILY PO Last administered on 10/23/16 08: 20; Admin Dose 180 MG; Start 10/21/16 at 10:00 BJORN GOYAL Oct 23, 2016 16:58
[2016-10-23] MEDS: PIPER-TAZO 3.375 GM IV (PMX) 100 ML IVPB SCH (22:19)
[2016-10-24] VITALS (11 sets, daily range): BP systolic 89–117; BP diastolic 52–72; PULSE 54–74; RESP 18–20
[2016-10-24] MEDS: PANTOPRAZOLE (EC) 40 MG TAB PO SCH (05:01)
[2016-10-24] MEDS: PIPER-TAZO 3.375 GM IV (PMX) 100 ML IVPB SCH ×3 (05:01→22:09)
[2016-10-24 06:59] LABS: BASOPHIL # 0.1 10^3/ul (0.0-0.1); BASOPHILS % 0.7 % (0.0-2.0); EOSINOPHILS # 0.3 10^3/ul (0.0-0.5); EOSINOPHILS % 2.9 % (0.0-7.0); HEMATOCRIT 40.6 % (42.0-52.0); HEMOGLOBIN 13.5 g/dl (14.0-18.0); LYMPHOCYTES % 19.8 % (15.0-51.0); MEAN CORPUSCULAR HEMOGLOBIN 32.1 pg (29.0-33.0); MEAN CORPUSCULAR HGB CONC 33.2 g/dl (32.0-37.0); MEAN CORPUSCULAR VOLUME 96.9 fl (82.0-101.0); MEAN PLATELET VOLUME 8.9 fl (7.4-10.4); MONOCYTE # 0.7 10^3/ul (0.3-0.9); MONOCYTES % 7.2 % (0.0-11.0); NEUTROPHIL # 6.9 10^3/ul (1.6-7.5); NEUTROPHILS % 69.4 % (39.0-77.0); PLATELET COUNT 254 10^3/UL (140-440); RED BLOOD COUNT 4.19 10^6/ul (4.70-6.10); RED CELL DISTRIBUTION WIDTH 15.1 % (11.5-14.5)
[2016-10-24 07:02] LABS: CONDITION 1; LH ANALYZER COMMENTS 1
[2016-10-24 07:25] LABS: ALBUMIN 3.3 g/dl (3.3-4.9); POTASSIUM 4.6 mmol/L (3.5-5.1)
[2016-10-24 07:27] LABS: BILIRUBIN,INDIRECT 0.3 mg/dl (0-1.1); BILIRUBIN,TOTAL 0.3 mg/dl (0.2-1.3); CREATININE 1.25 mg/dl (0.61-1.24)
[2016-10-24 07:28] LABS: ALBUMIN/GLOBULIN RATIO 1.13; TOTAL PROTEIN 6.2 g/dl (6.1-8.1)
[2016-10-24 07:29] LABS: CALCIUM 8.6 mg/dl (8.4-10.2)
[2016-10-24] MEDS: ATENOLOL 100 MG TAB PO SCH (08:26)
[2016-10-24] MEDS: APIXABAN 5 MG TABLET PO SCH ×2 (08:26→22:09)
[2016-10-24] MEDS: LISINOPRIL 5 MG TAB PO SCH (08:27)
[2016-10-24] MEDS: DILTIAZEM (CD) 180 MG CAP PO SCH (08:28)
--- NOTE | 2016-10-24 12:28 | PN ---
Date/Time of Note Date/Time of Note DATE: 10/24/16 TIME: 12:27 Assessment/Plan VTE Prophylaxis VTE Prophylaxis Intervention: other (Eliquis) Lines/Catheters IV [facility] Type (from [facility]): Saline Lock Urinary Cath still in place: No Assessment/Plan Chief Complaint/Hosp Course ASSESSMENT: 1. Atrial fibrillation with rapid ventricular response. Dr. Hoyt is following in cardiology consultation. Continue Eliquis. Continue atenolol and diltiazem. 2. Cardiomyopathy. 3. Mitral valve regurgitation. 4. History of rheumatic heart disease. 5. Poor medical compliance. 6. Abdominal pain, DrMikie Banegas is following from gastroenterology standpoint. 7. Possible acalculous cholecystitis, started on Zosyn. D/W Dr Banegas, plan for HIDA scan. Protonix for peptic ulcer disease prophylaxis. Further recommendations based on clinical course. Plan of care discussed with Dr. Noel. Problems: Exam/Review of Systems Vital Signs Vitals Vital Signs Date Time Temp Pulse Resp B/P Pulse Ox O2 Delivery O2 Flow Rate FiO2 10/24/16 12:15 70 10/24/16 12:03 97.9 20 89/57 100 10/20/16 20:15 Room Air Intake and Output 10/23/16 10/23/16 10/24/16 14:59 22:59 06:59 Intake Total 720 ml 250 ml Balance 720 ml 250 ml Exam GENERAL: Well-developed, well-nourished male, currently is awake, alert. HEENT: Head is atraumatic, normocephalic. PERRLA. NECK: Supple, no mass, no thyromegaly. JVD is present. LUNGS: Clear bilaterally. CARDIOVASCULAR: Irregularly irregular rhythm. S2, variable S1, systolic murmur. ABDOMEN: Round, soft, nondistended, nontender. Bowel sounds present. There is no guarding, no tenderness. EXTREMITIES: No edema, clubbing, cyanosis. Pulses equal bilaterally 2+. SKIN: No rash, petechiae noted. NEUROLOGIC: The patient is awake, alert and oriented x4. Results Result Diagram: 10/24/16 0557 10/24/16 0557 Results 24 hrs Laboratory Tests Test 10/24/16 05:57 Alanine Aminotransferase (ALT/SGPT) 96 H Albumin 3.3 Albumin/Globulin Ratio 1.13 Alkaline Phosphatase 140 H Anion Gap 17 H Aspartate Amino Transf (AST/SGOT) 92 H Basophils # 0.1 Basophils % 0.7 Blood Morphology Comment Blood Urea Nitrogen 22 H Calcium Level 8.6 Carbon Dioxide Level 23 Chloride Level 106 Creatinine 1.25 H Direct Bilirubin 0.00 Eosinophils # 0.3 Eosinophils % 2.9 Globulin 2.90 Glucose Level 90 Hematocrit 40.6 L Hemoglobin 13.5 L Indirect Bilirubin 0.3 Lymphocytes # 2.0 Lymphocytes % 19.8 Mean Corpuscular Hemoglobin 32.1 Mean Corpuscular Hemoglobin Concent 33.2 Mean Corpuscular Volume 96.9 Mean Platelet Volume 8.9 Monocytes # 0.7 Monocytes % 7.2 Neutrophils # 6.9 Neutrophils % 69.4 Nucleated Red Blood Cells # 0.0 Nucleated Red Blood Cells % 0.0 Platelet Count 254 Potassium Level 4.6 Red Blood Count 4.19 L Red Cell Distribution Width 15.1 H Sodium Level 141 Total Bilirubin 0.3 Total Protein 6.2 White Blood Count 10.0 Medications Medications Current Medications Apixaban (Eliquis) 5 mg BID PO Last administered on 10/24/16 08:26; Admin Dose 5 MG; Start 10/17/16 at 21:00 Lisinopril (Zestril) 2.5 mg DAILY PO Last administered on 10/24/16 08:27; Admin Dose 2.5 MG; Start 10/18/16 at 09:00 Pantoprazole (Protonix Tab) 40 mg DAILY@06 PO Last administered on 10/24/16 05: 01; Admin Dose 40 MG; Start 10/18/16 at 06:00 Ondansetron HCl (Zofran Inj) 4 mg Q6H PRN IV NAUSEA AND/OR VOMITING Last administered on 10/18/16 06:02; Admin Dose 4 MG; Start 10/18/16 at 06:00 Atenolol (Tenormin) 100 mg DAILY PO Last administered on 10/24/16 08:26; Admin Dose 100 MG; Start 10/20/16 at 09:00 Diltiazem HCl 180 mg 180 mg DAILY PO Last administered on 10/24/16 08:28; Admin Dose 180 MG; Start 10/21/16 at 10:00 Piperacillin Sod/ Tazobactam Sod (Zosyn 3.375gm/ 100 ml (Pmx)) 100 ml @ 200 mls /hr Q8 IVPB Last administered on 10/24/16t 05:01; Admin Dose 200 MLS/HR; Start 10/23/16 at 22:00 BJORN GOYAL Oct 24, 2016 12:28
--- NOTE | 2016-10-24 15:52 | CONS ---
Date/Time of Note Date/Time of Note DATE: 10/24/16 TIME: 15:51 Assessment/Plan Assessment/Plan Additional Assessment/Plan Atrial fibrillation, improved rates Cardiomyopathy with an EF 50% Mitral valve regurgitation - mod-severe History of rheumatic heart disease. -Heart rate trend has remained stable overall, continue anticoagulation. Consultation Date/Type/Reason Admit Date/Time Oct 17, 2016 at 18:15 Type of Consultation: cv 24 HR Interval Summary Free Text/Dictation Feeling better, no palpitations or shortness of breath, abdominal pain has improved Exam/Review of Systems Vital Signs Vitals Vital Signs Date Time Temp Pulse Resp B/P Pulse Ox O2 Delivery O2 Flow Rate FiO2 10/24/16 15:38 98.3 50 20 91/61 100 10/20/16 20:15 Room Air Intake and Output 10/23/16 10/23/16 10/24/16 15:00 23:00 07:00 Intake Total 720 ml 250 ml Balance 720 ml 250 ml Exam No apparent distress Constitutional: alert, oriented Head: normocephalic Neck: supple Respiratory: other (course breath sounds bilaterally, no wheezing) Cardiovascular: irregular rhythm, other (S1-S2 heard), systolic murmur Gastrointestinal: bowel sounds, non-tender, soft Extremities: other (no edema) Results Result Diagram: 10/24/16 0557 10/24/16 0557 Results 24 hrs Laboratory Tests Test 10/24/16 05:57 Alanine Aminotransferase (ALT/SGPT) 96 H Albumin 3.3 Albumin/Globulin Ratio 1.13 Alkaline Phosphatase 140 H Anion Gap 17 H Aspartate Amino Transf (AST/SGOT) 92 H Basophils # 0.1 Basophils % 0.7 Blood Morphology Comment Blood Urea Nitrogen 22 H Calcium Level 8.6 Carbon Dioxide Level 23 Chloride Level 106 Creatinine 1.25 H Direct Bilirubin 0.00 Eosinophils # 0.3 Eosinophils % 2.9 Globulin 2.90 Glucose Level 90 Hematocrit 40.6 L Hemoglobin 13.5 L Indirect Bilirubin 0.3 Lymphocytes # 2.0 Lymphocytes % 19.8 Mean Corpuscular Hemoglobin 32.1 Mean Corpuscular Hemoglobin Concent 33.2 Mean Corpuscular Volume 96.9 Mean Platelet Volume 8.9 Monocytes # 0.7 Monocytes % 7.2 Neutrophils # 6.9 Neutrophils % 69.4 Nucleated Red Blood Cells # 0.0 Nucleated Red Blood Cells % 0.0 Platelet Count 254 Potassium Level 4.6 Red Blood Count 4.19 L Red Cell Distribution Width 15.1 H Sodium Level 141 Total Bilirubin 0.3 Total Protein 6.2 White Blood Count 10.0 Medications Medications Current Medications Apixaban (Eliquis) 5 mg BID PO Last administered on 10/24/16 08:26; Admin Dose 5 MG; Start 10/17/16 at 21:00 Lisinopril (Zestril) 2.5 mg DAILY PO Last administered on 10/24/16 08:27; Admin Dose 2.5 MG; Start 10/18/16 at 09:00 Pantoprazole (Protonix Tab) 40 mg DAILY@06 PO Last administered on 10/24/16 05: 01; Admin Dose 40 MG; Start 10/18/16 at 06:00 Ondansetron HCl (Zofran Inj) 4 mg Q6H PRN IV NAUSEA AND/OR VOMITING Last administered on 10/18/16 06:02; Admin Dose 4 MG; Start 10/18/16 at 06:00 Atenolol (Tenormin) 100 mg DAILY PO Last administered on 10/24/16 08:26; Admin Dose 100 MG; Start 10/20/16 at 09:00 Diltiazem HCl 180 mg 180 mg DAILY PO Last administered on 10/24/16 08:28; Admin Dose 180 MG; Start 10/21/16 at 10:00 Piperacillin Sod/ Tazobactam Sod (Zosyn 3.375gm/ 100 ml (Pmx)) 100 ml @ 200 mls /hr Q8 IVPB Last administered on 10/24/16 14:44; Admin Dose 200 MLS/HR; Start 10/23/16 at 22:00 Wayne Hoyt DO Oct 24, 2016 15:52
--- NOTE | 2016-10-24 19:43 | CONS ---
DATE OF ADMISSION: 10/17/2016 DATE OF CONSULTATION: CHIEF COMPLAINT: Abdominal pain, improved. FINDINGS: On exam, he seems to be alert, well built, not in distress. Examination of the abdomen is unremarkable. LABORATORY FUNCTIONS: His alkaline phosphatase is 156, AST 132, 92, ALT 114, came down to 94, total bilirubin 0.3. The WBC count 10,000. Ultrasound of the upper abdomen showed a cholecystitis. CAT scan of the abdomen shows poor vi sualization of the gallbladder. IMPRESSION: It is quite possible based on the fact that he had abdominal pain, cholecystitis on the ultrasound, abnormal liver function. Under these circumstances, one should rule out the possibilit y of choledocholithiasis. Hence, at this time, I recommend MRCP to be done. If the MRCP shows any indication, we will do ERCP. Once again, doctor, thank you for this consultation and I will be happy to follow this patient. Dictated By: ZA SAUER/NATALIA Conf#: [id number] DID#: [id number] CC: NADER TRIANA MD;*EndCC*
--- NOTE | 2016-10-24 22:40 | RADRPT ---
PROCEDURE: Nuclear medicine hepatobiliary scan CLINICAL INDICATION: Abdominal pain TECHNIQUE: 5.0 mCi of technetium-99m Choletec was administered intravenously. Planar imaging of t he hepatobiliary system was performed. Images were reviewed on the high resolution PACS workstation . COMPARISON: Right upper quadrant abdominal ultrasound of 10/22/[address] abdomen of 10/21/2016 FINDINGS: There is normal and homogeneous uptake throughout the hepatobiliary system. There is normal emptyin g of radiotracer into the biliary tract. The common bile duct is normal. The gallbladder is visual ized at 15 minutes. There is visualization of the small bowel at 40 minutes. IMPRESSION: 1. Negative hepatobiliary scan. There is normal filling of the gallbladder. 2. Patent common bile duct with normal visualization of the small bowel. RPTAT: HJES .Ronak Shannon MD, Date Time Electronically viewed and signed by .Ronak Shannon MD, on 10/24/2016 22:39 .S/
[2016-10-25 05:35] LABS: BASOPHIL # 0.1 10^3/ul (0.0-0.1); BASOPHILS % 0.7 % (0.0-2.0); EOSINOPHILS # 0.2 10^3/ul (0.0-0.5); EOSINOPHILS % 2.5 % (0.0-7.0); HEMATOCRIT 39.9 % (42.0-52.0); HEMOGLOBIN 13.2 g/dl (14.0-18.0); LYMPHOCYTES # 1.9 10^3/ul (0.8-2.9); LYMPHOCYTES % 21.4 % (15.0-51.0); MEAN CORPUSCULAR HEMOGLOBIN 32.4 pg (29.0-33.0); MEAN CORPUSCULAR HGB CONC 33.1 g/dl (32.0-37.0); MEAN CORPUSCULAR VOLUME 97.7 fl (82.0-101.0); MEAN PLATELET VOLUME 8.8 fl (7.4-10.4); MONOCYTE # 0.6 10^3/ul (0.3-0.9); MONOCYTES % 6.9 % (0.0-11.0); NEUTROPHIL # 6.2 10^3/ul (1.6-7.5); NEUTROPHILS % 68.5 % (39.0-77.0); PLATELET COUNT 261 10^3/UL (140-440); RED BLOOD COUNT 4.09 10^6/ul (4.70-6.10); RED CELL DISTRIBUTION WIDTH 15.3 % (11.5-14.5)
[2016-10-25] MEDS: PIPER-TAZO 3.375 GM IV (PMX) 100 ML IVPB SCH ×3 (06:16→22:03)
[2016-10-25] MEDS: PANTOPRAZOLE (EC) 40 MG TAB PO SCH (06:17)
[2016-10-25 06:31] LABS: POTASSIUM 4.3 mmol/L (3.5-5.1)
[2016-10-25 06:34] LABS: CREATININE 1.24 mg/dl (0.61-1.24)
[2016-10-25 06:35] LABS: CALCIUM 8.7 mg/dl (8.4-10.2)
[2016-10-25 06:54] LABS: CONDITION 1; LH ANALYZER COMMENTS 1
--- NOTE | 2016-10-25 07:29 | RADRPT ---
PROCEDURE: MRCP without contrast. CLINICAL INDICATION: Right upper quadrant abdominal pain. TECHNIQUE: Routine MRCP was obtained without the administration of intravenous contrast. COMPARISON: Ultrasound, 10/22/2016. FINDINGS: There is mild gallbladder wall thickening without calculi. No intra- or extra-hepatic biliary dilat ation is identified. There is no filling defect or choledocholithiasis. There is no biliary strict ure. The pancreatic duct is within normal limits. There is a small right pleural effusion. IMPRESSION: Mild nonspecific gallbladder wall thickening without visible stones by MRI. No significant biliary dilatation, filling defect, choledocholithiasis. Small right pleural effusion. RPTAT: EE .Felipe Galicia MD, MD Date Time Electronically viewed and signed by .Felipe Galicia MD, on 10/25/2016 07:32 .C/
[2016-10-25 08:03] VITALS: BP 100/72; RESP 20
[2016-10-25] MEDS: ATENOLOL 100 MG TAB PO SCH (09:00)
[2016-10-25] MEDS: LISINOPRIL 5 MG TAB PO SCH (09:00)
[2016-10-25] MEDS: DILTIAZEM (CD) 180 MG CAP PO SCH (09:00)
[2016-10-25 09:50] VITALS: BP 100/72; PULSE 77; RESP 20
[2016-10-25] MEDS: APIXABAN 5 MG TABLET PO SCH ×2 (10:11→22:02)
--- NOTE | 2016-10-25 18:55 | PN ---
Date/Time of Note Date/Time of Note DATE: 10/25/16 TIME: 18:55 Assessment/Plan VTE Prophylaxis VTE Prophylaxis Intervention: other Lines/Catheters IV Catheter Type (from [facility]): Saline Lock Urinary Cath still in place: No Assessment/Plan Assessment/Plan 1. Atrial fibrillation with rapid ventricular response. Dr. Hoyt is following in cardiology consultation. Continue Eliquis. Continue atenolol and diltiazem. 2. Cardiomyopathy. 3. Mitral valve regurgitation. 4. History of rheumatic heart disease. 5. Poor medical compliance. 6. Abdominal pain, DrMikie Banegas is following from gastroenterology standpoint. 7. Possible acalculous cholecystitis, started on Zosyn. D/W Dr Banegas, plan for HIDA scan. Protonix for peptic ulcer disease prophylaxis. Further recommendations based on clinical course. Plan of care discussed with Dr. Noel. Subjective 24 Hr Interval Summary Eyes: no complaints ENT: no complaints Respiratory: no complaints Gastrointestinal: no complaints Genitourinary: no complaints Exam/Review of Systems Vital Signs Vitals Vital Signs Date Time Temp Pulse Resp B/P Pulse Ox O2 Delivery O2 Flow Rate FiO2 10/25/16 09:50 97.6 77 20 100/72 99 Room Air Intake and Output 10/24/16 10/24/16 10/25/16 15:00 23:00 07:00 Intake Total 1360 ml 950 ml Balance 1360 ml 950 ml Exam Constitutional: alert, oriented, well developed Results Result Diagram: 10/25/16 0505 10/25/16 0505 Results 24 hrs Laboratory Tests Test 10/25/16 05:05 Anion Gap 15 Basophils # 0.1 Basophils % 0.7 Blood Morphology Comment Blood Urea Nitrogen 24 H Calcium Level 8.7 Carbon Dioxide Level 22 Chloride Level 107 Creatinine 1.24 Eosinophils # 0.2 Eosinophils % 2.5 Glucose Level 89 Hematocrit 39.9 L Hemoglobin 13.2 L Lymphocytes # 1.9 Lymphocytes % 21.4 Mean Corpuscular Hemoglobin 32.4 Mean Corpuscular Hemoglobin Concent 33.1 Mean Corpuscular Volume 97.7 Mean Platelet Volume 8.8 Monocytes # 0.6 Monocytes % 6.9 Neutrophils # 6.2 Neutrophils % 68.5 Nucleated Red Blood Cells # 0.0 Nucleated Red Blood Cells % 0.0 Platelet Count 261 Potassium Level 4.3 Red Blood Count 4.09 L Red Cell Distribution Width 15.3 H Sodium Level 140 White Blood Count 9.0 Medications Medications Current Medications Apixaban (Eliquis) 5 mg BID PO Last administered on 10/25/16 10:11; Admin Dose 5 MG; Start 10/17/16 at 21:00 Lisinopril (Zestril) 2.5 mg DAILY PO Last administered on 10/24/16 08:27; Admin Dose 2.5 MG; Start 10/18/16 at 09:00 Pantoprazole (Protonix Tab) 40 mg DAILY@06 PO Last administered on 10/25/16 06: 17; Admin Dose 40 MG; Start 10/18/16 at 06:00 Ondansetron HCl (Zofran Inj) 4 mg Q6H PRN IV NAUSEA AND/OR VOMITING Last administered on 10/18/16 06:02; Admin Dose 4 MG; Start 10/18/16 at 06:00 Atenolol (Tenormin) 100 mg DAILY PO Last administered on 10/24/16 08:26; Admin Dose 100 MG; Start 10/20/16 at 09:00 Diltiazem HCl 180 mg 180 mg DAILY PO Last administered on 10/24/16 08:28; Admin Dose 180 MG; Start 10/21/16 at 10:00 Piperacillin Sod/ Tazobactam Sod (Zosyn 3.375gm/ 100 ml (Pmx)) 100 ml @ 200 mls /hr Q8 IVPB Last administered on 10/25/16 15:20; Admin Dose 200 MLS/HR; Start 10/23/16 at 22:00 DONG ADORNO Oct 25, 2016 18:55
[2016-10-25 19:39] VITALS: BP 98/78; RESP 20
[2016-10-26 05:28] LABS: BASOPHIL # 0.1 10^3/ul (0.0-0.1); BASOPHILS % 0.5 % (0.0-2.0); EOSINOPHILS # 0.3 10^3/ul (0.0-0.5); EOSINOPHILS % 2.9 % (0.0-7.0); HEMATOCRIT 41.2 % (42.0-52.0); HEMOGLOBIN 13.9 g/dl (14.0-18.0); LYMPHOCYTES # 2.5 10^3/ul (0.8-2.9); LYMPHOCYTES % 24.8 % (15.0-51.0); MEAN CORPUSCULAR HEMOGLOBIN 32.8 pg (29.0-33.0); MEAN CORPUSCULAR HGB CONC 33.8 g/dl (32.0-37.0); MEAN PLATELET VOLUME 8.8 fl (7.4-10.4); MONOCYTE # 0.7 10^3/ul (0.3-0.9); MONOCYTES % 7.1 % (0.0-11.0); NEUTROPHIL # 6.6 10^3/ul (1.6-7.5); NEUTROPHILS % 64.7 % (39.0-77.0); PLATELET COUNT 270 10^3/UL (140-440); RED BLOOD COUNT 4.25 10^6/ul (4.70-6.10); RED CELL DISTRIBUTION WIDTH 14.9 % (11.5-14.5); UNCORRECTED WBC 10.1 10^3/ul (4.8-10.8); WHITE BLOOD COUNT 10.1 10^3/ul (4.8-10.8)
[2016-10-26 05:37] LABS: POTASSIUM 4.6 mmol/L (3.5-5.1)
[2016-10-26 05:39] LABS: CREATININE 1.31 mg/dl (0.61-1.24)
[2016-10-26 05:40] LABS: CALCIUM 8.7 mg/dl (8.4-10.2)
[2016-10-26] MEDS: PANTOPRAZOLE (EC) 40 MG TAB PO SCH (06:11)
[2016-10-26] MEDS: PIPER-TAZO 3.375 GM IV (PMX) 100 ML IVPB SCH ×3 (06:11→22:20)
[2016-10-26 06:27] LABS: CONDITION 1; LH ANALYZER COMMENTS 1
[2016-10-26 08:34] VITALS: BP 120/77; RESP 18
[2016-10-26] MEDS: ATENOLOL 100 MG TAB PO SCH (09:00)
[2016-10-26] MEDS: LISINOPRIL 5 MG TAB PO SCH (09:00)
[2016-10-26] MEDS: DILTIAZEM (CD) 180 MG CAP PO SCH (09:00)
[2016-10-26] MEDS: APIXABAN 5 MG TABLET PO SCH ×2 (09:04→22:20)
--- NOTE | 2016-10-26 16:54 | CONS ---
Date/Time of Note Date/Time of Note DATE: 10/26/16 TIME: 16:51 Assessment/Plan Assessment/Plan Additional Assessment/Plan Atrial fibrillation, improved rates Cardiomyopathy with an EF 50% Mitral valve regurgitation - mod-severe History of rheumatic heart disease. -HR and BP on the lower end but remains asymptomatic, decrease dose of Cardizem and anti-HTN meds with holding parameters. Cont a/c. Consultation Date/Type/Reason Admit Date/Time Oct 17, 2016 at 18:15 Type of Consultation: cv 24 HR Interval Summary Free Text/Dictation denies cp, palpitations, dizziness, sob Exam/Review of Systems Vital Signs Vitals Vital Signs Date Time Temp Pulse Resp B/P Pulse Ox O2 Delivery O2 Flow Rate FiO2 10/26/16 08:34 98.6 76 18 120/77 96 10/25/16 09:50 Room Air Intake and Output 10/25/16 10/25/16 10/26/16 15:00 23:00 07:00 Intake Total 1080 ml 640 ml Balance 1080 ml 640 ml Exam nad Constitutional: alert, oriented Head: normocephalic Neck: supple Respiratory: other (course bs, no wheeze) Cardiovascular: irregular rhythm, other (s1s2) Gastrointestinal: bowel sounds, non-tender, soft Extremities: other (no edema) Results Result Diagram: 10/26/16 0437 10/26/16 0437 Results 24 hrs Laboratory Tests Test 10/26/16 04:37 Anion Gap 16 Basophils # 0.1 Basophils % 0.5 Blood Morphology Comment Blood Urea Nitrogen 25 H Calcium Level 8.7 Carbon Dioxide Level 23 Chloride Level 107 Creatinine 1.31 H Eosinophils # 0.3 Eosinophils % 2.9 Glucose Level 94 Hematocrit 41.2 L Hemoglobin 13.9 L Lymphocytes # 2.5 Lymphocytes % 24.8 Mean Corpuscular Hemoglobin 32.8 Mean Corpuscular Hemoglobin Concent 33.8 Mean Corpuscular Volume 97.0 Mean Platelet Volume 8.8 Monocytes # 0.7 Monocytes % 7.1 Neutrophils # 6.6 Neutrophils % 64.7 Nucleated Red Blood Cells # 0.0 Nucleated Red Blood Cells % 0.0 Platelet Count 270 Potassium Level 4.6 Red Blood Count 4.25 L Red Cell Distribution Width 14.9 H Sodium Level 141 White Blood Count 10.1 Medications Medications Current Medications Apixaban (Eliquis) 5 mg BID PO Last administered on 10/26/16 09:04; Admin Dose 5 MG; Start 10/17/16 at 21:00 Lisinopril (Zestril) 2.5 mg DAILY PO Last administered on 10/24/16 08:27; Admin Dose 2.5 MG; Start 10/18/16 at 09:00 Pantoprazole (Protonix Tab) 40 mg DAILY@06 PO Last administered on 10/26/16 06: 11; Admin Dose 40 MG; Start 10/18/16 at 06:00 Ondansetron HCl (Zofran Inj) 4 mg Q6H PRN IV NAUSEA AND/OR VOMITING Last administered on 10/18/16 06:02; Admin Dose 4 MG; Start 10/18/16 at 06:00 Atenolol 100 mg 100 mg DAILY PO Last administered on 10/24/16 08:26; Admin Dose 100 MG; Start 10/20/16 at 09:00 Piperacillin Sod/ Tazobactam Sod (Zosyn 3.375gm/ 100 ml (Pmx)) 100 ml @ 200 mls /hr Q8 IVPB Last administered on 10/26/16 15:41; Admin Dose 200 MLS/HR; Start 10/23/16 at 22:00 Diltiazem HCl (Cardizem Cd) 120 mg DAILY PO ; Start 10/27/16 at 09:00 Wayne Hoyt DO Oct 26, 2016 16:54
--- NOTE | 2016-10-26 18:07 | PN ---
Date/Time of Note Date/Time of Note DATE: 10/26/16 TIME: 18:06 Assessment/Plan VTE Prophylaxis VTE Prophylaxis Intervention: SCD's Lines/Catheters IV C[facility]ter Type (from [facility]): [facility] Urinary Cath still in place: No Assessment/Plan Chief Complaint/Hosp Course ASSESSMENT: 1. Atrial fibrillation with rapid ventricular response. Dr. Hoyt is following in cardiology consultation. Continue Eliquis. Continue atenolol and diltiazem. 2. Cardiomyopathy. 3. Mitral valve regurgitation. 4. History of rheumatic heart disease. 5. Poor medical compliance. 6. Abdominal pain, Dr. Dr. Banegas is following from gastroenterology standpoint. 7. Possible acalculous cholecystitis, started on Zosyn. Protonix for peptic ulcer disease prophylaxis. Further recommendations based on clinical course. Plan of care discussed with Dr. Noel. Problems: Subjective 24 Hr Interval Summary Free Text/Dictation Patient stated that his abdominal pain is getting better, better controlled heart rate, episodes of hypotension. Exam/Review of Systems Vital Signs Vitals Vital Signs Date Time Temp Pulse Resp B/P Pulse Ox O2 Delivery O2 Flow Rate FiO2 10/26/16 08:34 98.6 76 18 120/77 96 10/25/16 09:50 Room Air Intake and Output 10/25/16 10/25/16 10/26/16 15:00 23:00 07:00 Intake Total 1080 ml 640 ml Balance 1080 ml 640 ml Exam GENERAL: Well-developed, well-nourished male, currently is awake, alert. HEENT: Head is atraumatic, normocephalic. PERRLA. NECK: Supple, no mass, no thyromegaly. JVD is present. LUNGS: Clear bilaterally. CARDIOVASCULAR: Irregularly irregular rhythm. S2, variable S1, systolic murmur. ABDOMEN: Round, soft, nondistended, nontender. Bowel sounds present. There is no guarding, no tenderness. EXTREMITIES: No edema, clubbing, cyanosis. Pulses equal bilaterally 2+. SKIN: No rash, petechiae noted. NEUROLOGIC: The patient is awake, alert and oriented x4. Results Result Diagram: 10/26/16 0437 10/26/16 0437 Results 24 hrs Laboratory Tests Test 10/26/16 04:37 Anion Gap 16 Basophils # 0.1 Basophils % 0.5 Blood Morphology Comment Blood Urea Nitrogen 25 H Calcium Level 8.7 Carbon Dioxide Level 23 Chloride Level 107 Creatinine 1.31 H Eosinophils # 0.3 Eosinophils % 2.9 Glucose Level 94 Hematocrit 41.2 L Hemoglobin 13.9 L Lymphocytes # 2.5 Lymphocytes % 24.8 Mean Corpuscular Hemoglobin 32.8 Mean Corpuscular Hemoglobin Concent 33.8 Mean Corpuscular Volume 97.0 Mean Platelet Volume 8.8 Monocytes # 0.7 Monocytes % 7.1 Neutrophils # 6.6 Neutrophils % 64.7 Nucleated Red Blood Cells # 0.0 Nucleated Red Blood Cells % 0.0 Platelet Count 270 Potassium Level 4.6 Red Blood Count 4.25 L Red Cell Distribution Width 14.9 H Sodium Level 141 White Blood Count 10.1 Medications Medications Current Medications Apixaban (Eliquis) 5 mg BID PO Last administered on 10/26/16 09:04; Admin Dose 5 MG; Start 10/17/16 at 21:00 Lisinopril (Zestril) 2.5 mg DAILY PO Last administered on 10/24/16 08:27; Admin Dose 2.5 MG; Start 10/18/16 at 09:00 Pantoprazole (Protonix Tab) 40 mg DAILY@06 PO Last administered on 10/26/16 06: 11; Admin Dose 40 MG; Start 10/18/16 at 06:00 Ondansetron HCl (Zofran Inj) 4 mg Q6H PRN IV NAUSEA AND/OR VOMITING Last administered on 10/18/16 06:02; Admin Dose 4 MG; Start 10/18/16 at 06:00 Atenolol 100 mg 100 mg DAILY PO Last administered on 10/24/16 08:26; Admin Dose 100 MG; Start 10/20/16 at 09:00 Piperacillin Sod/ Tazobactam Sod (Zosyn 3.375gm/ 100 ml (Pmx)) 100 ml @ 200 mls /hr Q8 IVPB Last administered on 10/26/16 15:41; Admin Dose 200 MLS/HR; Start 10/23/16 at 22:00 Diltiazem HCl (Cardizem Cd) 120 mg DAILY PO ; Start 10/27/16 at 09:00 BJORN GOYAL Oct 26, 2016 18:07
[2016-10-26 20:30] VITALS: BP 116/71; RESP 18
[2016-10-27] MEDS: PIPER-TAZO 3.375 GM IV (PMX) 100 ML IVPB SCH ×3 (04:56→23:16)
[2016-10-27] MEDS: PANTOPRAZOLE (EC) 40 MG TAB PO SCH (04:56)
[2016-10-27 08:12] VITALS: BP 120/82; RESP 20
[2016-10-27] MEDS: ATENOLOL 100 MG TAB PO SCH (08:47)
[2016-10-27] MEDS: APIXABAN 5 MG TABLET PO SCH ×2 (08:47→23:16)
[2016-10-27] MEDS: LISINOPRIL 5 MG TAB PO SCH (08:48)
[2016-10-27] MEDS ORDERED: DILTIAZEM (CD) 120 MG CAP PO SCH (09:00)
--- NOTE | 2016-10-27 13:25 | PN ---
Date/Time of Note Date/Time of Note DATE: 10/27/16 TIME: 13:24 Assessment/Plan VTE Prophylaxis VTE Prophylaxis Intervention: other Lines/Catheters IV C[facility]ter Type (from [facility]): Sal[facility] Lock Urinary Cath still in place: No Assessment/Plan Chief Complaint/Hosp Course 1. Atrial fibrillation with rapid ventricular response. Dr. Hoyt is following in cardiology consultation. Continue Eliquis. Continue atenolol and diltiazem. 2. Cardiomyopathy. 3. Mitral valve regurgitation. 4. History of rheumatic heart disease. 5. Poor medical compliance. 6. Abdominal pain, DrMikie Banegas is following from gastroenterology standpoint. 7. Possible acalculous cholecystitis, started on Zosyn. D/W Dr Banegas, plan for HIDA scan. Problems: Subjective 24 Hr Interval Summary Free Text/Dictation Patient has no complaints Exam/Review of Systems Vital Signs Vitals Vital Signs Date Time Temp Pulse Resp B/P Pulse Ox O2 Delivery O2 Flow Rate FiO2 10/27/16 08:12 98.6 83 20 120/82 98 10/25/16 09:50 Room Air Intake and Output 10/26/16 10/26/16 10/27/16 15:00 23:00 07:00 Intake Total 1320 ml 700 ml Balance 1320 ml 700 ml Exam Neck: supple Respiratory: diminished breath sounds Cardiovascular: regular rate and rhythm Gastrointestinal: non-tender, soft Extremities: normal pulses Results Result Diagram: 10/26/16 0437 10/26/16 0437 Medications Medications Current Medications Apixaban (Eliquis) 5 mg BID PO Last administered on 10/27/16 08:47; Admin Dose 5 MG; Start 10/17/16 at 21:00 Lisinopril (Zestril) 2.5 mg DAILY PO Last administered on 10/27/16 08:48; Admin Dose 2.5 MG; Start 10/18/16 at 09:00 Pantoprazole (Protonix Tab) 40 mg DAILY@06 PO Last administered on 10/27/16 04: 56; Admin Dose 40 MG; Start 10/18/16 at 06:00 Ondansetron HCl (Zofran Inj) 4 mg Q6H PRN IV NAUSEA AND/OR VOMITING Last administered on 10/18/16 06:02; Admin Dose 4 MG; Start 10/18/16 at 06:00 Atenolol 100 mg 100 mg DAILY PO Last administered on 10/27/16 08:47; Admin Dose 100 MG; Start 10/20/16 at 09:00 Piperacillin Sod/ Tazobactam Sod (Zosyn 3.375gm/ 100 ml (Pmx)) 100 ml @ 200 mls /hr Q8 IVPB Last administered on 10/27/16 04:56; Admin Dose 200 MLS/HR; Start 10/23/16 at 22:00 Diltiazem HCl (Cardizem Cd) 120 mg DAILY PO Last administered on 10/27/16 08:48 ; Admin Dose 120 MG; Start 10/27/16 at 09:00 JESSICA POTTER Oct 27, 2016 13:25
[2016-10-27 20:12] VITALS: BP 109/64; RESP 19
[2016-10-28] MEDS: PIPER-TAZO 3.375 GM IV (PMX) 100 ML IVPB SCH ×3 (05:08→21:56)
[2016-10-28] MEDS: PANTOPRAZOLE (EC) 40 MG TAB PO SCH (05:08)
[2016-10-28 08:00] VITALS: BP 105/76; PULSE 76; RESP 18
[2016-10-28] MEDS: APIXABAN 5 MG TABLET PO SCH ×2 (08:10→20:42)
[2016-10-28] MEDS: ATENOLOL 100 MG TAB PO SCH (08:11)
[2016-10-28] MEDS: LISINOPRIL 5 MG TAB PO SCH (08:11)
--- NOTE | 2016-10-28 12:17 | PN ---
Date/Time of Note Date/Time of Note DATE: 10/28/16 TIME: 12:17 Assessment/Plan VTE Prophylaxis VTE Prophylaxis Intervention: other Lines/Catheters IV [facility] Type (from [facility] Sal[facility] Lock Urinary Cath still in place: No Assessment/Plan Chief Complaint/Hosp Course 1. Atrial fibrillation with rapid ventricular response. Dr. Hoyt is following in cardiology consultation. Continue Eliquis. Continue atenolol and diltiazem. 2. Cardiomyopathy. 3. Mitral valve regurgitation. 4. History of rheumatic heart disease. 5. Poor medical compliance. 6. Abdominal pain, DrMikie Banegas is following from gastroenterology standpoint. 7. Possible acalculous cholecystitis, started on Zosyn. D/W Dr Banegas, plan for HIDA scan. Problems: Subjective 24 Hr Interval Summary Free Text/Dictation Patient has no complaints Exam/Review of Systems Vital Signs Vitals Vital Signs Date Time Temp Pulse Resp B/P Pulse Ox O2 Delivery O2 Flow Rate FiO2 10/28/16 08:00 98.7 76 18 105/76 98 Room Air Intake and Output 10/27/16 10/27/16 10/28/16 15:00 23:00 07:00 Intake Total 200 ml 1380 ml 320 ml Balance 200 ml 1380 ml 320 ml Exam Constitutional: well developed Head: atraumatic, normocephalic Neck: supple Respiratory: clear to auscultation Cardiovascular: regular rate and rhythm Gastrointestinal: non-tender, soft Extremities: normal pulses Results Result Diagram: 10/26/16 0437 10/26/16 0437 Medications Medications Current Medications Apixaban (Eliquis) 5 mg BID PO Last administered on 10/28/16 08:10; Admin Dose 5 MG; Start 10/17/16 at 21:00 Lisinopril (Zestril) 2.5 mg DAILY PO Last administered on 10/27/16 08:48; Admin Dose 2.5 MG; Start 10/18/16 at 09:00 Pantoprazole (Protonix Tab) 40 mg DAILY@06 PO Last administered on 10/28/16 05: 08; Admin Dose 40 MG; Start 10/18/16 at 06:00 Ondansetron HCl (Zofran Inj) 4 mg Q6H PRN IV NAUSEA AND/OR VOMITING Last administered on 10/18/16 06:02; Admin Dose 4 MG; Start 10/18/16 at 06:00 Atenolol 100 mg 100 mg DAILY PO Last administered on 10/27/16 08:47; Admin Dose 100 MG; Start 10/20/16 at 09:00 Piperacillin Sod/ Tazobactam Sod (Zosyn 3.375gm/ 100 ml (Pmx)) 100 ml @ 200 mls /hr Q8 IVPB Last administered on 10/28/16 05:08; Admin Dose 200 MLS/HR; Start 10/23/16 at 22:00 JESSICA POTTER Oct 28, 2016 12:17
[2016-10-28 20:19] VITALS: BP 111/83; RESP 18
[2016-10-29] MEDS: PANTOPRAZOLE (EC) 40 MG TAB PO SCH (05:38)
[2016-10-29] MEDS: PIPER-TAZO 3.375 GM IV (PMX) 100 ML IVPB SCH ×2 (05:39→13:12)
[2016-10-29 06:10] LABS: POTASSIUM 4.6 mmol/L (3.5-5.1)
[2016-10-29 06:13] LABS: CREATININE 1.32 mg/dl (0.61-1.24)
[2016-10-29 06:14] LABS: CALCIUM 8.8 mg/dl (8.4-10.2)
[2016-10-29 06:23] LABS: BASOPHIL # 0.1 10^3/ul (0.0-0.1); BASOPHILS % 0.8 % (0.0-2.0); EOSINOPHILS # 0.2 10^3/ul (0.0-0.5); EOSINOPHILS % 1.4 % (0.0-7.0); HEMATOCRIT 42.7 % (42.0-52.0); HEMOGLOBIN 14.4 g/dl (14.0-18.0); LYMPHOCYTES # 2.3 10^3/ul (0.8-2.9); LYMPHOCYTES % 20.7 % (15.0-51.0); MEAN CORPUSCULAR HEMOGLOBIN 32.5 pg (29.0-33.0); MEAN CORPUSCULAR HGB CONC 33.6 g/dl (32.0-37.0); MEAN CORPUSCULAR VOLUME 96.8 fl (82.0-101.0); MONOCYTE # 0.6 10^3/ul (0.3-0.9); MONOCYTES % 5.4 % (0.0-11.0); NEUTROPHIL # 7.9 10^3/ul (1.6-7.5); NEUTROPHILS % 71.7 % (39.0-77.0); PLATELET COUNT 268 10^3/UL (140-440); RED BLOOD COUNT 4.41 10^6/ul (4.70-6.10); RED CELL DISTRIBUTION WIDTH 15.1 % (11.5-14.5); UNCORRECTED WBC 11.1 10^3/ul (4.8-10.8); WHITE BLOOD COUNT 11.1 10^3/ul (4.8-10.8)
[2016-10-29 06:28] LABS: CONDITION 1; LH ANALYZER COMMENTS 1
[2016-10-29 08:22] VITALS: BP 105/76; RESP 16
[2016-10-29] MEDS: ATENOLOL 100 MG TAB PO SCH (09:00)
[2016-10-29] MEDS: LISINOPRIL 5 MG TAB PO SCH (09:00)
[2016-10-29] MEDS: APIXABAN 5 MG TABLET PO SCH ×2 (09:34→20:49)
--- NOTE | 2016-10-29 16:45 | CONS ---
Date/Time of Note Date/Time of Note DATE: 10/29/16 TIME: 16:43 Assessment/Plan Assessment/Plan Additional Assessment/Plan Atrial fibrillation, improved rates Cardiomyopathy with an EF 50% Mitral valve regurgitation - mod-severe History of rheumatic heart disease. -Would decrease dose of atenolol given borderline blood pressure and episodes of bradycardia. Continue anticoagulation. Continue ASHLYN inhibitor as blood pressure permits given mitral regurgitation. Consultation Date/Type/Reason Admit Date/Time Oct 17, 2016 at 18:15 Type of Consultation: cv 24 HR Interval Summary Free Text/Dictation Denies palpitations, shortness of breath or dizziness Exam/Review of Systems Vital Signs Vitals Vital Signs Date Time Temp Pulse Resp B/P Pulse Ox O2 Delivery O2 Flow Rate FiO2 10/29/16 08:22 98.5 57 16 105/76 97 10/28/16 08:00 Room Air Intake and Output 10/28/16 10/28/16 10/29/16 15:00 23:00 07:00 Intake Total 200 ml 580 ml 580 ml Balance 200 ml 580 ml 580 ml Exam No apparent distress Constitutional: alert, oriented Head: normocephalic Neck: supple Respiratory: clear to auscultation, normal air movement Cardiovascular: irregular rhythm, other (S1-S2 heard), systolic murmur Gastrointestinal: bowel sounds, non-tender, soft Extremities: other (no edema) Results Result Diagram: 10/29/16 0520 10/29/16 0520 Results 24 hrs Laboratory Tests Test 10/29/16 05:20 Anion Gap 19 H Basophils # 0.1 Basophils % 0.8 Blood Morphology Comment Blood Urea Nitrogen 27 H Calcium Level 8.8 Carbon Dioxide Level 19 L Chloride Level 107 Creatinine 1.32 H Eosinophils # 0.2 Eosinophils % 1.4 Glucose Level 96 Hematocrit 42.7 Hemoglobin 14.4 Lymphocytes # 2.3 Lymphocytes % 20.7 Mean Corpuscular Hemoglobin 32.5 Mean Corpuscular Hemoglobin Concent 33.6 Mean Corpuscular Volume 96.8 Mean Platelet Volume 9.0 Monocytes # 0.6 Monocytes % 5.4 Neutrophils # 7.9 H Neutrophils % 71.7 Nucleated Red Blood Cells # 0.0 Nucleated Red Blood Cells % 0.0 Platelet Count 268 Potassium Level 4.6 Red Blood Count 4.41 L Red Cell Distribution Width 15.1 H Sodium Level 140 White Blood Count 11.1 H Medications Medications Current Medications Apixaban (Eliquis) 5 mg BID PO Last administered on 10/29/16 09:34; Admin Dose 5 MG; Start 10/17/16 at 21:00 Lisinopril (Zestril) 2.5 mg DAILY PO Last administered on 10/27/16 08:48; Admin Dose 2.5 MG; Start 10/18/16 at 09:00 Pantoprazole (Protonix Tab) 40 mg DAILY@06 PO Last administered on 10/29/16 05: 38; Admin Dose 40 MG; Start 10/18/16 at 06:00 Ondansetron HCl (Zofran Inj) 4 mg Q6H PRN IV NAUSEA AND/OR VOMITING Last administered on 10/18/16 06:02; Admin Dose 4 MG; Start 10/18/16 at 06:00 Atenolol 100 mg 100 mg DAILY PO Last administered on 10/27/16 08:47; Admin Dose 100 MG; Start 10/20/16 at 09:00 Piperacillin Sod/ Tazobactam Sod (Zosyn 3.375gm/ 100 ml (Pmx)) 100 ml @ 200 mls /hr Q8 IVPB Last administered on 10/29/16 13:12; Admin Dose 200 MLS/HR; Start 10/23/16 at 22:00 Wayne Hoyt DO Oct 29, 2016 16:45
--- NOTE | 2016-10-29 19:00 | PN ---
Date/Time of Note Date/Time of Note DATE: 10/29/16 TIME: 18:58 Assessment/Plan VTE Prophylaxis VTE Prophylaxis Intervention: SCD's Lines/Catheters IV [facility]from [facility] Saline Lock Urinary Cath still in place: No Assessment/Plan Chief Complaint/Hosp Course ASSESSMENT: 1. Atrial fibrillation with rapid ventricular response. Dr. Hoyt is following in cardiology consultation. Continue Eliquis. Continue atenolol and diltiazem. 2. Cardiomyopathy. 3. Mitral valve regurgitation. 4. History of rheumatic heart disease. 5. Poor medical compliance. 6. Abdominal pain, DrMikie Banegas is following from gastroenterology standpoint. 7. Possible acalculous cholecystitis, status post treatment. Dr. Noel discussed the plan of care and patient's condition was patient and patient's family at the bedside. Protonix for peptic ulcer disease prophylaxis. Further recommendations based on clinical course. Plan of care discussed with Dr. Noel. Problems: Subjective 24 Hr Interval Summary Free Text/Dictation Patient tolerates current diet well, denies any nausea vomiting, atenolol is titrated by cardiology due to mild bradycardia and borderline blood pressure. Exam/Review of Systems Vital Signs Vitals Vital Signs Date Time Temp Pulse Resp B/P Pulse Ox O2 Delivery O2 Flow Rate FiO2 10/29/16 08:22 98.5 57 16 105/76 97 10/28/16 08:00 Room Air Intake and Output 10/28/16 10/28/16 10/29/16 15:00 23:00 07:00 Intake Total 200 ml 580 ml 580 ml Balance 200 ml 580 ml 580 ml Exam GENERAL: Well-developed, well-nourished male, currently is awake, alert. HEENT: Head is atraumatic, normocephalic. PERRLA. NECK: Supple, no mass, no thyromegaly. JVD is present. LUNGS: Clear bilaterally. CARDIOVASCULAR: Irregularly irregular rhythm. S2, variable S1, systolic murmur. ABDOMEN: Round, soft, nondistended, nontender. Bowel sounds present. There is no guarding, no tenderness. EXTREMITIES: No edema, clubbing, cyanosis. Pulses equal bilaterally 2+. SKIN: No rash, petechiae noted. NEUROLOGIC: The patient is awake, alert and oriented x4. Results Result Diagram: 10/29/16 0520 10/29/16 0520 Results 24 hrs Laboratory Tests Test 10/29/16 05:20 Anion Gap 19 H Basophils # 0.1 Basophils % 0.8 Blood Morphology Comment Blood Urea Nitrogen 27 H Calcium Level 8.8 Carbon Dioxide Level 19 L Chloride Level 107 Creatinine 1.32 H Eosinophils # 0.2 Eosinophils % 1.4 Glucose Level 96 Hematocrit 42.7 Hemoglobin 14.4 Lymphocytes # 2.3 Lymphocytes % 20.7 Mean Corpuscular Hemoglobin 32.5 Mean Corpuscular Hemoglobin Concent 33.6 Mean Corpuscular Volume 96.8 Mean Platelet Volume 9.0 Monocytes # 0.6 Monocytes % 5.4 Neutrophils # 7.9 H Neutrophils % 71.7 Nucleated Red Blood Cells # 0.0 Nucleated Red Blood Cells % 0.0 Platelet Count 268 Potassium Level 4.6 Red Blood Count 4.41 L Red Cell Distribution Width 15.1 H Sodium Level 140 White Blood Count 11.1 H Medications Medications Current Medications Apixaban (Eliquis) 5 mg BID PO Last administered on 10/29/16 09:34; Admin Dose 5 MG; Start 10/17/16 at 21:00 Lisinopril (Zestril) 2.5 mg DAILY PO Last administered on 10/27/16 08:48; Admin Dose 2.5 MG; Start 10/18/16 at 09:00 Pantoprazole (Protonix Tab) 40 mg DAILY@06 PO Last administered on 10/29/16 05: 38; Admin Dose 40 MG; Start 10/18/16 at 06:00 Ondansetron HCl 4 mg 4 mg Q6H PRN IV NAUSEA AND/OR VOMITING Last administered on 10/18/16 06:02; Admin Dose 4 MG; Start 10/18/16 at 06:00 Piperacillin Sod/ Tazobactam Sod (Zosyn 3.375gm/ 100 ml (Pmx)) 100 ml @ 200 mls /hr Q8 IVPB Last administered on 10/29/16 13:12; Admin Dose 200 MLS/HR; Start 10/23/16 at 22:00 Atenolol (Tenormin) 50 mg DAILY PO ; Start 10/30/16 at 09:00 BJORN GOYAL Oct 29, 2016 19:00
[2016-10-29 19:28] VITALS: BP 121/86; RESP 18
[2016-10-30] MEDS: PANTOPRAZOLE (EC) 40 MG TAB PO SCH (05:32)
[2016-10-30 05:59] LABS: ALBUMIN 3.8 g/dl (3.3-4.9)
[2016-10-30 06:00] LABS: POTASSIUM 4.6 mmol/L (3.5-5.1)
[2016-10-30 06:02] LABS: BILIRUBIN,INDIRECT 0.3 mg/dl (0-1.1); BILIRUBIN,TOTAL 0.3 mg/dl (0.2-1.3); CREATININE 1.22 mg/dl (0.61-1.24)
[2016-10-30 06:03] LABS: ALBUMIN/GLOBULIN RATIO 1.26; TOTAL PROTEIN 6.8 g/dl (6.1-8.1)
[2016-10-30] MEDS: ONDANSETRON 4 MG INJ IV PRN (08:26)
[2016-10-30] MEDS: APIXABAN 5 MG TABLET PO SCH (08:26)
[2016-10-30] MEDS: LISINOPRIL 5 MG TAB PO SCH (08:35)
[2016-10-30 08:52] VITALS: BP 130/90; RESP 67
[2016-10-30] MEDS ORDERED: ATENOLOL 50 MG TAB PO SCH (09:00)
[2016-10-30] MEDS ORDERED: APIX5TAB PO (16:31)
[2016-10-30] MEDS ORDERED: ATEN50TA PO (16:31)
[2016-10-30] MEDS ORDERED: PANT40TA4 PO (16:31)
[2016-10-30] MEDS ORDERED: LISI-313 PO (16:31)
--- NOTE | 2016-11-04 20:31 | DS ---
DATE OF ADMISSION: 10/17/2016 DATE OF DISCHARGE: 10/30/2016 FINAL DIAGNOSES: 1. Atrial fibrillation with rapid ventricular response. 2. Cardiomyopathy. 3. Mitral valve regurgitation. 4. History of rheumatic heart disease. 5. Poor medical compliance. 6. Abdominal pain. 7. Possible acalculous cholecystitis status post treatment. BRIEF HISTORY: The patient is a 55-year-old gentleman with history of cardiomyopathy, mitral valve regurgitation, atrial fibrillation and tricuspid regurgitation. The patient has a history of atrial fibrillation with rapid ventricular response who refused cardioversion per last admission. The olivia zuluaga was discharged on medical management for atrial fibrillation. The patient stated that he ran o ut of his medication for 5 days and was supposed to see his primary physician in the office tomorrow . However, the patient developed shortness of breath, palpitations and presented to the emergency r oom. The patient was found to have atrial fibrillation with rapid ventricular response. The patien t was started on Cardizem drip and admitted to the intensive care unit for further evaluation and ma nagement. HOSPITAL COURSE: The patient was evaluated by Dr. Pedersen and Dr. Hoyt in cardiology consultation. The patient was in ICU on Cardizem drip. The patient also was restarted on Eliquis, continued on Metoprolol, Digoxin and Cardizem. The patient subsequently was and monitored on telemetry isabel or. However, the patient had sometimes refused some amiodarone and diltiazem stating that he has an upset stomach after taking this medication. Patient was evaluated by Dr. Banegas in gastroenterolog y consultation. The patient was also started on Protonix for peptic ulcer disease prophylaxis. The patient underwent abdomen and pelvis CT scan. The patient also underwent a gallbladder ultrasound which revealed gallbladder wall thickening, no gallstones. This may indicate acalculous cholecystit is. The patient was started on Zosyn. The patient also underwent a HIDA scan which was negative. The patient also underwent an MRCP which showed mild nonspecific gallbladder wall thickening without visible stone. No significant biliary dilatation filling defect for cholelithiasis and small right pleural effusion. The patient's condition improved. The patient's heart rate was well controlled. Patient's medication was titrated by cardiology to achieve adequate heart rate and blood pressure and the patient's abdominal pain resolved and the patient was discharged home. CONDITION ON DISCHARGE: Hemodynamically stable. ACTIVITY: As patient tolerates. DISCHARGE MEDICATIONS: 1. Eliquis 5 mg p.o. b.i.d. 2. Kenalog 50 mg p.o. daily. 3. Lisinopril 2.5 mg p.o. daily. 4. Protonix 40 mg p.o. daily. Case management arranged the patient to be seen by primary care physician. Medication compliant reg imen is strongly advised for this patient. Patient instructed to follow up with primary care physic franko in 1 to 2 weeks. Interdisciplinary plan of care was established for this patient. Plan of care was discussed with Dr Mikie Triana. Dictated By: [employer] for NADER TRIANA MD SR/NTS Conf#: [id number] DID#: [id number]
== END 2016-10-30 18:26 | disposition home or self-care (01) | DRG 309 ==
LOC: E/R 07:46 → TEL 18:15 → PP2 10-24 21:52
PROVIDERS: ADMIT Internal Medicine; ATTEND Internal Medicine
DX: I48.2 Chronic atrial fibrillation (principal); N17.9 Acute kidney failure, unspecified; I42.9 Cardiomyopathy, unspecified; I50.9 Heart failure, unspecified; I05.1 Rheumatic mitral insufficiency; Z91.14 Patient's other noncompliance with medication regimen; I07.1 Rheumatic tricuspid insufficiency; R00.1 Bradycardia, unspecified; T44.7X5A Adverse effect of beta-adrenoreceptor antagonists, initial encounter; Y92.230 Patient room in hospital as the place of occurrence of the external cause; R10.9 Unspecified abdominal pain; D64.9 Anemia, unspecified; Z79.02 Long term (current) use of antithrombotics/antiplatelets; Z87.891 Personal history of nicotine dependence
CPT/HCPCS: 71010; 74176; 74181; 76705; 76775; 78226; 80048; 80053; 82150; 82550; 82553; 83690; 83735; 84484; 85025; 85610; 85730; 90686; 93005; 96374; 96375; A9537; J2405; J2543; J7042